=== PATIENT | male | born 1965 | race Caucasian/White ===

== ENCOUNTER 2018-07-16 21:43 | Observation (INO) | payer OTHER ==
--- NOTE | 2018-07-16 22:07 | ED ---
HPI Chest Pain - HPI Summary HPI Summary: This patient is a 52 year old M presenting to [facility] with a chief complaint of left sided chest pain for the last 90 minutes. He states he felt nauseous but has resolved post arrival. He denies diaphoresis and SOB. Patient also has a secondary complaint of increased depression and is seeking a voluntary MHE, he denies SI. He had stents placed in 2014. The patient rates his chest pain 7/10 in severity. The patient takes Plavix and aspirin. He had his last stress test less than year ago. He has had one other episode of chest pain 8 months ago since he had his stent placed. The patient has not been taking his depression medication which is why he is seeking help for his depression. - History of Current Complaint Chief Complaint: EDChestPainROMI Time Seen by Provider: 07/16/18 21:59 Hx Obtained From: Patient Onset/Duration: Started Hours Ago Timing: Constant Current Severity: Moderate Pain Intensity: 7 Pain Scale Used: 0-10 Numeric Chest Pain Radiates: No Character: Heaviness Associated Signs and Symptoms: Positive: Nausea - Allergy/Home Medications Allergies/Adverse Reactions: Allergies Allergy/AdvReac Type Severity Reaction Status Date / Time clonidine Allergy Rash Verified 07/16/18 22:27 haloperidol [From Haldol] Allergy Hives Verified 07/16/18 22:27 nitroglycerin Allergy Hives Verified 07/16/18 22:27 Penicillins Allergy GI Upset Verified 07/16/18 22:27 Home Medications: Home Medications Atenolol 50 mg PO BID 07/16/18 [History Confirmed 07/16/18] Clopidogrel Bisulfate [Plavix] 75 mg PO DAILY 07/16/18 [History Confirmed ] Hydrocodone/Acetaminophen [Hydrocodone/Acetaminophen 5-325 mg] 1 tab PO Q6HR PRN 07/16/18 [History Confirmed 07/16/18] Atorvastatin* [Lipitor*] 20 mg PO DAILY 07/17/18 [History Confirmed 07/17/18] PMH/Surg Hx/FS Hx/Imm Hx Endocrine/Hematology History: Denies: Hx Anemia, Hx Unexplained Bleeding Cardiovascular History: Reports: Hx Coronary Artery Disease, Hx Hypercholesterolemia, Hx Hypertension Denies: Hx Aneurysm, Hx Angina, Hx Angioplasty, Hx Auto Implanted Cardiovert Defib, Hx Cardiac Arrest, Hx Cardiomegaly, Hx Congenital Heart Disease, Hx Congestive Heart Failure, Hx Deep Vein Thrombosis, Hx Embolism, Hx Hypotension, Hx Pacemaker/ICD, Hx Peripheral Vascular Disease, Hx Rheumatic Fever, Hx Syncope , Hx Valvular Heart Disease, Other Cardiovascular Problems/Disorders GI History: Reports: Hx Gastroesophageal Reflux Disease Denies: Hx Cirrhosis, Hx Crohn's Disease, Hx Diverticulosis, Hx Gall Bladder Disease, Hx Gastrointestinal Bleed, Hx Hiatal Hernia, Hx Irritable Bowel, Hx Jaundice, Hx Obstructive Bowel, Hx Ileostomy, Hx Pyloric Stenosis, Hx Ulcer, Other GI Disorders Sensory History: Reports: Hx Contacts or Glasses Denies: Hx Cataracts, Hx Eye Injury, Hx Eye Prosthesis, Hx Glaucoma, Hx Legally Blind, Hx Macular Degeneration, Hx Vision Problem, Hx Deafness, Hx Hearing Aid, Hx Hearing Problem, Other Sensory Impairments Opthamlomology History: Reports: Hx Contacts or Glasses Denies: Hx Cataracts, Hx Eye Injury, Hx Eye Prosthesis, Hx Glaucoma, Hx Legally Blind, Hx Macular Degeneration, Hx Vision Problem, Other Sensory Impairments Psychiatric History: Reports: Hx Anxiety, Hx Depression, Hx Inpatient Treatment , Hx Community Mental Health Tx, Hx Bipolar Disorder, Hx Suicide Attempt Denies: Hx Attention Deficit Hyperactivity Disorder, Hx Eating Disorder, Hx Panic Disorder, Hx Post Traumatic Stress Disorder, Hx Schizophrenia, Hx of Violent Episodes Against Others, Hx Substance Abuse, Other Psychiatric Issues/ Disorders - Surgical History Surgery Procedure, Year, and Place: 1999 appendix. 1999 Left cataract. 2013 2 stents Hx Anesthesia Reactions: No Infectious Disease History: No Infectious Disease History: Denies: Hx Hepatitis, Traveled Outside the [place] in Last 30 Days - Family History Known Family History: Positive: Cardiac Disease - Father - Social History Alcohol Use: None Substance Use Type: Reports: None Substance Use Comment - Amount & Last Used: Fentanyl patch and hydrocodone Smoking Status (MU): Heavy Every Day Tobacco Smoker Type: Cigarettes Have You Smoked in the Last Year: Yes Review of Systems Negative: Skin Diaphoresis Positive: Chest Pain Negative: Shortness Of Breath Positive: Nausea Positive: Other - Neg: SI All Other Systems Reviewed And Are Negative: Yes Physical Exam - Summary Physical Exam Summary: VITAL SIGNS: Reviewed. GENERAL: Patient is a well-developed and nourished MALE who is lying comfortable in the stretcher. Patient is not in any acute respiratory distress. HEAD AND FACE: No signs of trauma. No ecchymosis, hematomas or skull depressions. No sinus tenderness. EYES: PERRLA, EOMI x 2, No injected conjunctiva, no nystagmus. EARS: Hearing grossly intact. Ear canals and tympanic membranes are within normal limits. MOUTH: Oropharynx within normal limits. NECK: Supple, trachea is midline, no adenopathy, no JVD, no carotid bruit, no c- spine tenderness, neck with full ROM. CHEST: Symmetric, no tenderness at palpation LUNGS: Clear to auscultation bilaterally. No wheezing or crackles. CVS: Regular rate and rhythm, S1 and S2 present, no murmurs or gallops appreciated. ABDOMEN: Soft, non-tender. No signs of distention. No rebound no guarding, and no masses palpated. Bowel sounds are normal. EXTREMITIES: FROM in all major joints, no edema, no cyanosis or clubbing. NEURO: Alert and oriented x 3. No acute neurological deficits. Speech is normal and follows commands. SKIN: Dry and warm Triage Information Reviewed: Yes Vital Signs On Initial Exam: Initial Vitals Temp Pulse Resp BP Pulse Ox 98.0 F 110 16 151/117 96 07/16/18 21:48 07/16/18 21:48 07/16/18 21:48 07/16/18 21:48 07/16/18 21:48 Vital Signs Reviewed: Yes Diagnostics - Vital Signs Vital Signs Temp Pulse Resp BP Pulse Ox 07/16/18 21:48 98.0 F 110 16 151/117 96 - Laboratory Result Diagrams: 07/16/18 22:39 07/16/18 22:39 Lab Statement: Any lab studies that have been ordered have been reviewed, and results considered in the medical decision making process. - Radiology CXR Radiology Interpretation Completed By: ED Physician Summary of Radiographic Findings: No acute process. Pending official radiologist report. - EKG 2087 Cardiac Rate: NL EKG Rhythm: Sinus Rhythm - 100 BPM Summary of EKG Findings: 1st degree AV block no ischemic changes. Chest Pain Course/Dx - Course Assessment/Plan: This patient is a 52 year old M presenting to [facility] with a chief complaint of left sided chest pain for the last 90 minutes. CXR was unremarkable for acute cardiopulmonary disease. D-Dimer was negative. The patient will be admitted for chest pain. This plan was discussed with the patient and he was agreeable with this plan. [place] hospitalist [id number]. Irene Shin, Hospitalist, accepted the patient for admission at 2342. - Diagnoses Provider Diagnoses: Chest pain - Provider Notifications Discussed Care Of Patient With: Irene Shin - Hospitalist Time Discussed With Above Provider: 23:42 Instructed by Provider To: Admit As Inpatient Discharge - Sign-Out/Discharge Documenting (check all that apply): Patient Departure - Admission - Discharge Plan Condition: Stable Disposition: ADMITTED TO [facility] - Billing Disposition and Condition Condition: STABLE Disposition: Admitted to [facility] - Attestation Statements Document Initiated by Nichole: Yes Documenting Scribe: Med Wilson Provider For Whom Nichole is Documenting (Include Credential): Jose Colon MD Scribe Attestation: Med Arroyo scribed for Jose Colon MD on 07/17/18 at 0626. Scribe Documentation Reviewed: Yes Provider Attestation: The documentation as recorded by the Med islas accurately reflects the service I personally performed and the decisions made by me, Jose Colon MD Status of Scribe Document: Viewed
[2018-07-16] MEDS ORDERED: Morphine VIAL* 4 MG/ML VIAL (1 ml vial) IV ONE (22:27)
[2018-07-16] MEDS ORDERED: Ondansetron INJ* 2 MG/ML VIAL IV ONE (22:27)
[2018-07-16] MEDS ORDERED: Aspirin 81 mg CHEW TAB* 81 MG TAB.CHEW PO ONE (22:28)
[2018-07-16 22:50] LABS: ABS Basophils 0 10^3/ul (0-0.2); ABS Eosinophils 0.1 10^3/ul (0-0.6); ABS Lymphocytes 1.9 10^3/ul (1.0-4.8); ABS Monocytes 0.5 10^3/ul (0-0.8); ABS Nucleated RBC 0 10^3/ul; Eosinophil % 1.1 %; Hematocrit 45 % (42-52); Hemoglobin 15.1 g/dl (14.0-18.0); Lymphocyte % 22.5 %; Mean Corpuscular HGB Conc 34 g/dl (31-36); Mean Corpuscular Hemoglobin 31 pg (27-31); Mean Corpuscular Volume 93 fL (80-94); Mean Platelet Volume 8.6 fL (7.4-10.4); Nucleated Red Blood Cells % 0.1; Platelet Count 199 10^3/ul (150-450); Red Blood Count 4.83 10^6/ul (4.00-5.40); Red Cell Distribution Width 13 % (10.5-15); White Blood Count 8.6 10^3/ul (3.5-10.8)
[2018-07-16 22:56] LABS: Urine Appearance Clear; Urine Bilirubin Negative (Negative); Urine Blood Negative (Negative); Urine Color Straw; Urine Glucose Negative (Negative); Urine Ketones Negative (Negative); Urine Nitrite Negative (Negative); Urine Protein Negative (Negative); Urine Specific Gravity 1.005 (1.010-1.030); Urine Urobilinogen Negative (Negative)
[2018-07-16 23:03] LABS: INR 0.95 (0.77-1.02)
[2018-07-16 23:05] LABS: ALT 28 U/L (7-52); AST 23 U/L (13-39); Albumin 4.1 g/dL (3.2-5.2); Albumin/Globulin Ratio 1.8 (1-3); Alkaline Phosphatase 84 U/L (34-104); Anion Gap 7 mmol/L (2-11); BUN/Creatinine Ratio 17.9 (8-20); Blood Urea Nitrogen 15 mg/dL (6-24); CO2 Carbon Dioxide 28 mmol/L (22-32); Calcium 9.5 mg/dL (8.6-10.3); Chloride 102 mmol/L (101-111); EGFR Non-African American 95.6 (>60); Globulin 2.3 g/dL (2-4); Glucose 164 mg/dL (70-100); Magnesium 1.8 mg/dL (1.9-2.7); Potassium 4.1 mmol/L (3.5-5.0); Sodium 137 mmol/L (135-145); Total Protein 6.4 g/dL (6.4-8.9)
[2018-07-16 23:18] LABS: Barbiturates Urine Screen None Detected (None Detect); Benzodiazepine Urine Screen Presumptive Positive (None Detect); Urine Cannabinoids Screen None Detected (None Detect)
[2018-07-17] MEDS ORDERED: Nicotine GUM* 2 MG PO PRN (00:20)
[2018-07-17 00:23] LABS: Acetaminophen < 15 mcg/mL; Alcohol < 10 mg/dL (<10); Salicylate < 2.50 mg/dL (<30)
[2018-07-17 00:38] LABS: TSH (Thyroid Stimulating Horm) 1.27 mcIU/mL (0.34-5.60)
[2018-07-17] MEDS ORDERED: fentaNYL PATCH 50 MCG/HR TRANSDERM SCH ×2 (01:00→02:30)
[2018-07-17] MEDS ORDERED: Mouth Piece, Nicotine* 1 EACH CARTRIDGE INH ONE (01:00)
[2018-07-17] MEDS ORDERED: fentaNYL PATCH 75 MCG/HR* 75 MCG TRANSDERM SCH (02:30)
[2018-07-17] MEDS: Nicotine Inhaler* 10 MG AMP INH PRN ×2 (02:32→09:08)
[2018-07-17] MEDS: HYDROcodone/ACETAMIN 5-325 MG* 1 TAB PO PRN ×3 (02:33→14:57)
--- NOTE | 2018-07-17 03:07 | HP ---
HOSPITAL MEDICINE HISTORY AND PHYSICAL: DATE OF ADMISSION: 07/17/18 PRIMARY CARE PHYSICIAN: None. ATTENDING PHYSICIAN: Dr. Shin* (dictation provided by Claudia Ren NP) CHIEF COMPLAINT: Chest pain and depression. HISTORY OF PRESENT ILLNESS: Mr. Bell is a 52-year-old male who presents today to the hospital with concern for depression initially. The patient states that he recently did not have access to his Celexa due to an issue with getting a refill processed; however, he was able to straighten that out and had resumed his Celexa approximately 2 days ago. The patient states that he was talking with a friend today and based on the way he was speaking to him and the depression he was evidencing, the friend recommended that he come to the emergency room to "talk to someone." This friend drove the patient to the hospital. On the way here, the patient became nauseous. They stopped at a gas station where he had dry heaves, but did not vomit. With this, he developed chest pain on the left side of his chest and now in the emergency room, he is continuing to complain of discomfort and states he feels like he has a load of bricks sitting on his chest. He denies shortness of breath. He has had no diaphoresis. He denies radiation of the pain. He states that prior to this happening, he has not had any pain like this since the time that he had his cardiac cath with stent placed in [facility] in 2013 or 2014. In the emergency room, the patient had a troponin, which was negative. He had an EKG, which showed no evidence of ischemia. His labs were unremarkable. His chest x-ray appears to show no acute cardiothoracic process. In terms of his depression, the patient is unable to clearly characterize for me how he has been feeling, but he clearly denies any suicidal ideation. Mental health evaluation was ordered in the emergency department and I do not believe that has been accomplished yet. PAST MEDICAL HISTORY: 1. Depression. 2. Coronary artery disease with stent placement x2 in [address] [facility]. 3. Cardiomyopathy. 4. Anxiety. 5. History of appendectomy. 6. Hypertension. 7. History of tobacco abuse. MEDICATIONS: 1. Clopidogrel 75 mg p.o. daily. 2. Fentanyl patch 75 mcg topically q.72 hours. 3. Pantoprazole 40 mg p.o. daily. 4. Hydrocodone/acetaminophen 1 tab p.o. q.6 hours p.r.n. 5. Citalopram 20 mg p.o. daily. 6. Atenolol 50 mg p.o. b.i.d. 7. Alprazolam 2 mg p.o. t.i.d. ALLERGIES: CLONIDINE, HALOPERIDOL, NITROGLYCERIN, and PENICILLINS. FAMILY HISTORY: The patient's mother at 57 of lupus, father at 78 and had a coronary artery disease with 3-vessel CABG. SOCIAL HISTORY: The patient is a half a pack a day smoker. Denies alcohol or drug use. He is unable to offer healthcare proxy. REVIEW OF SYSTEMS: A 14-point review of systems was completed with Mr. Bell and all those not mentioned above were negative. PHYSICAL EXAMINATION GENERAL: Mr. Bell is lying in bed, in no acute distress. VITAL SIGNS: Temperature 98.0, pulse rate 91, respiratory rate 14, O2 saturation 98% on room air, blood pressure 170/94. LUNGS: Clear to auscultation bilaterally with no accessory muscle use and good aeration. HEART: S1, S2. No murmur, rub, or gallop and regular. ABDOMEN: Soft, nontender with bowel sounds positive x4. EXTREMITIES: No cyanosis. No edema. NEUROLOGIC: He is alert and oriented x3. He moves all extremities equally. No facial asymmetry or focal weakness. Extraocular movements are intact. SKIN: Intact. LABORATORY DATA/DIAGNOSTIC STUDIES: Sodium 137, potassium 4.1, chloride 102, serum bicarbonate 28, BUN 15, creatinine 0.84, glucose 164, magnesium 1.8. Troponin 0.01. WBC 8.6, hemoglobin 15.1, hematocrit 45, platelet count 199. Urine shows no evidence of infection. Toxicology screen is positive for opiates and benzodiazepines. The chest x-ray appears to show no acute cardiothoracic process, but radiology report is pending. ASSESSMENT: Mr. Bell is a 52-year-old male with past medical history of coronary artery disease with stents, who presents to the hospital today with a concern for chest pain in the setting of presenting to the hospital for depression. Our plans are for observation in the hospital for the followin. Chest pain: The patient's primary complaint arriving here today was depression, but on the way here, he did develop chest pain. He continues to have a sensation of the "ton of bricks sitting on his chest." The patient does have a history of coronary artery disease and does deserve workup on a more urgent basis. First troponin was negative. He will have 2 repeat troponins and then go on for a stress test in the morning. He will have EKGs with each troponin. 2. Depression. The patient actively denies any suicidal ideation today. Mental health evaluators have been requested to see him in the emergency room and it is my hope that they will come to see him upstairs. At this time, the patient is unsure whether or not staying in the behavioral health unit would have any benefit for him. He has received treatment there before. I think the patient at least desires a mental health solo truck driver evaluation before he leaves, if not a full consultation with psychiatry. 3. Nicotine use. The patient will have nicotine inhaler and patch available p.r.n. 4. History of coronary artery disease, continue his Plavix. Aspirin has been added for acute chest pain. 5. Depression. Continue his home medications. 6. Chronic pain. Continue home medications. 7. Anxiety. Continue home medications. 8. Code status is full code. 9. Disposition: To telemetry floor. TIME SPENT: Approximately 60 minutes were spent on the admission of this patient, more than half of the time was spent with the patient at the bedside reviewing the events leading up to this hospitalization, performing the physical examination, and reviewing my plan of care. CLAUDIA REN NP [id number]/CPS #: [id number]
[2018-07-17] MEDS: Heparin VIAL(*) 5000 UNITS/ML VIAL (FIVE THOUSAND) SUBCUT SCH ×2 (05:02→13:52)
[2018-07-17 05:58] LABS: HDL Cholesterol 30.8 mg/dL
[2018-07-17] MEDS ORDERED: fentaNYL Patch Check Q Shift 1 NOTE FOLLOW UP SCH (07:00)
[2018-07-17] MEDS: ALPRAZolam TAB* 0.5 MG PO SCH ×2 (08:49→13:52)
[2018-07-17] MEDS ORDERED: Atenolol TAB* 50 MG PO SCH (09:00)
[2018-07-17] MEDS ORDERED: Clopidogrel TAB* 75 MG PO SCH (09:00)
[2018-07-17] MEDS ORDERED: CMCS: Pantoprazole TAB (NF) 40 MG TAB PO SCH (09:00)
[2018-07-17] MEDS ORDERED: Citalopram TAB* 20 MG PO SCH (09:00)
[2018-07-17] MEDS ORDERED: Aspirin 81 mg CHEW TAB* 81 MG TAB.CHEW PO SCH (09:00)
[2018-07-17] MEDS ORDERED: Nicotine PATCH 14 MG/24 HR* PATCH TRANSDERM SCH (09:00)
--- NOTE | 2018-07-17 10:48 | ECHO ---
Patient: DARIEL SINGH Rec#: [id number] : 1965 Date: 07/17/2018 Age: 52y Height: 183 cm / 72.0 in Weight: 109 kg / 240.2 lbs Sex: M BSA: 2.3 Room#: [facility] Admit Date#: 07/17/2018 Type: Inpatient Referring: Trav Macias Reading: Aron Pena MD Executive Manager: Sommer Caro [facility] Transthoracic Echocardiogram Indication: CP BP: 134/79 HR: 57 Rhythm: Bradycardia Findings History: Depression,anxiety,CAD with prior PCI,HTN,smoker. Technical Comments: The study is technically limited due to the patient's smoking history. Completed at 1031. Left Ventricle: The left ventricular chamber size is normal. Mild concentric left ventricular hypertrophy is observed. Global left ventricular wall motion and contractility are within normal limits. There is normal left ventricular systolic function. The estimated ejection fraction is 55-60%. Abnormal left ventricular diastolic function is observed. Left Atrium: The left atrium is moderate to severely dilated. Right Ventricle: The right ventricular cavity size is normal. The right ventricular global systolic function is normal. Right Atrium: The right atrium is moderate to severely dilated. Aortic Valve: The aortic valve is trileaflet. There is no evidence of aortic valve thickening. There is no evidence of aortic regurgitation. There is no evidence of aortic stenosis. Mitral Valve: The mitral valve leaflets are mildly thickened. There is no evidence of mitral regurgitation. Tricuspid Valve: The tricuspid valve leaflets are normal. There is no evidence of tricuspid valve regurgitation. Unable to estimate the right ventricular systolic pressure. Pulmonic Valve: The pulmonic valve appears normal. There is no evidence of pulmonic regurgitation. There is no pulmonic stenosis. Pericardium: There is no significant pericardial effusion. A pericardial fat pad is visualized. Aorta: There is no dilatation of the ascending aorta. There is no dilatation of the aortic arch. There is mild dilatation of the aortic root. Pulmonary Artery: The main pulmonary artery is not well visualized. Venous: The venous system is not well visualized. Conclusions There is normal left ventricular systolic function. The estimated ejection fraction is 55-60%. Global left ventricular wall motion and contractility are within normal limits. The left ventricular chamber size is normal. Mild concentric left ventricular hypertrophy is observed. Abnormal left ventricular diastolic function is observed. The left atrium is moderate to severely dilated. The right atrium is moderate to severely dilated. Functionally benign heart valves. Since the prior echocardiogram completed 04/01/15, there is no significant change. Measurements Name Value Normal Range RVIDd (AP) 2D 3.2 cm (0.9 - 2.6) RVDdMajor (2D) 3.1 cm (2.2 - 4.4) RAd ISD 4CH 6.4 cm (3.4 - 4.9) RA (A4C)W 4.1 cm (2.9 - 4.6) IVSd (2D) 1.2 cm (0.6 - 1) LVPWd (2D) 1.3 cm (0.6 - 1) LVIDd (2D) 4.8 cm (3.6 - 5.4) LVIDs (2D) 3.1 cm - LV FS (2D) 35 % (25 - 45) Aortic Annulus 2.1 cm (1.4 - 2.6) Ao root diameter (2D) 3.6 cm (2.1 - 3.5) Ascending Ao 2.8 cm (2.1 - 3.4) Aortic arch 2.1 cm (1.8 - 3.4) Descending Ao 0.7 cm - LA dimension (AP) 2D 4.8 cm (2.3 - 3.8) LAd ISD 4CH 6.1 cm (2.9 - 5.3) LA ISD 4CH W 5.6 cm (2.5 - 4.5) Name Value Normal Range LA ESV SP 4CH (A/L) 43 ml - LA ESV SP 2CH (A/L) 16 ml - LA ESV BP (A/L) index 27 ml/m2 - Name Value Normal Range MV E-wave Vmax 0.7 m/sec - MV deceleration time 250 msec - MV A-wave Vmax 0.4 m/sec - MV E:A ratio 1.8 ratio - LV septal e' Vmax 0.08 m/sec - LV lateral e' Vmax 0.11 m/sec - LV E:e' septal ratio 8.75 ratio - LV E:e' lateral ratio 6.36 ratio - Name Value Normal Range AV Vmax 0.9 m/sec - AV VTI 20.9 cm - AV peak gradient 3 mmHg - AV mean gradient 2 mmHg - LVOT Vmax 0.8 m/sec - LVOT VTI 17.2 cm - LVOT peak gradient 2 mmHg - LVOT mean gradient 1 mmHg - Name Value Normal Range PV Vmax 0.5 m/sec - PV peak gradient 1 mmHg -
[2018-07-17 12:35] VITALS: BP 117/76
[2018-07-17] MEDS ORDERED: Nicotine Patch Removal NOTE PATCH OFF SCH (21:00)
--- NOTE | 2018-07-17 23:32 | DS ---
CC: Dr. Edmundo Art; Dr. Doug Booth* DISCHARGE SUMMARY: DATE OF ADMISSION: 07/16/18 DATE OF DISCHARGE: 07/17/18 PRIMARY CARE PROVIDER: Dr. Edmundo Art. MY ATTENDING WHILE IN THE HOSPITAL: Dr. Doug Booth* (dictated by LAURY Mario). PRIMARY DISCHARGE DIAGNOSIS: Chest pain. SECONDARY DISCHARGE DIAGNOSES: 1. History of alcohol-related cardiomyopathy. 2. History of bare-metal stenting for chronic stable angina. 3. History of coronary artery dissection, status post treatment with bare- metal stenting. 4. Chronic pain. 5. Anxiety. 6. Depression. STUDIES DONE WHILE IN THE HOSPITAL: Electrocardiogram from 07/16/18 shows sinus tachycardia, QTc 453, rate of 100, no ST-segment elevation or depression, no T-wave inversions, no hypertrophy or enlargement, normal R-wave progression across the precordium, normal axis, borderline right bundle-branch block. Repeat EKGs show no significant changes. Chest x-ray read as no evidence of acute disease. Transthoracic echocardiogram from 07/17/18 read as normal left ventricular systolic function, estimated ejection fraction at 55% to 60%, global left ventricular wall motion within normal limits, left ventricular chamber size is normal, mild left ventricular hypertrophy is observed, and normal left ventricular diastolic function is observed. Left atrium is moderately to severely dilated, right atrium is moderately to severely dilated, functionally benign heart valves. Since prior echocardiogram from 04/01/15, there were no significant changes. MEDICATIONS AT DISCHARGE: 1. Pantoprazole 40 mg p.o. daily. 2. Citalopram 20 mg p.o. daily. 3. Fentanyl 75 mcg topical q.72 hours. 4. Alprazolam 2 mg p.o. t.i.d. 5. Atenolol 50 mg p.o. b.i.d. 6. Hydrocodone/acetaminophen 1 tab p.o. q.6 hours as needed. 7. Clopidogrel 75 mg p.o. daily. 8. Atorvastatin 20 mg p.o. daily. 9. Aspirin 81 mg p.o. daily. HOSPITAL COURSE: This is a brief summary of the patient's presentation. For more details, please see history and physical from Claudia Ren NP, on 07/17/18. In brief, the patient is a 52-year-old male with past medical history significant for above, who presented to the emergency department for depression , but was found at that time to have chest pain which started on the way to the emergency room. This was associated with nausea and a feeling of being hot, but no diaphoresis. The patient initially denied having pain like this since he had a stent placed at [facility]; however, records from [facility] from 2014 reveal that the patient has been seen numerous times at that institution for similar pain and he was believed at that time to be attempting to elicit extra narcotic prescriptions. The patient denied suicidal or homicidal ideation. The patient was depressed and his friend told him to come in, however, it was unclear why this was. The patient had somewhat of a flat affect, but was generally euthymic while he was in the hospital. The patient had previously had a poor reaction to the nuclear medicine dye and refused his stress test on the morning of 07/17/18. The patient also refused a stress echocardiogram due to feeling pressured into doing these tests. The patient wants to do stress test outpatient if he was going to have one. The patient had a transthoracic echocardiogram, it was normal. The patient had 3 troponins which were negative. The patient had 3 EKGs read as above, with no ischemic changes. The patient had LDL cholesterol of 71. The patient had a toxicology screen positive only for his prescribed medications. The patient continued to have chest pain throughout the night. The patient's chest pain did not respond to his home medications. The patient was not given nitroglycerin while in the hospital. The patient's vital signs were within normal limits. The patient was stable and amenable for discharge on 07/17/18. PHYSICAL EXAM ON DAY OF DISCHARGE: General: The patient is a 52-year-old male who appears stated age and sitting comfortably in bed, in no acute distress. Vital Signs: At the time of discharge, temperature 97.9, pulse rate of 56, respiratory rate 20, oxygen saturation 100% on room air, blood pressure 117/76. HEENT: Head normocephalic, atraumatic. Sclerae anicteric. No conjunctival injection. Nasal mucosa moist. Oral mucosa moist. No pharyngeal erythema, discharge, or exudate. Neck: Supple, nontender. No lymphadenopathy. No carotid bruits auscultated. No JVD. Cardiac: Regular rate and rhythm. No clicks, murmurs, gallops, or rubs. Pulses are 2+ in the bilateral dorsalis pedis , posterior tibialis, and radial areas. Respiratory: Clear to auscultation bilaterally. No wheezes, rales, or rhonchi. Good air exchange bilaterally. Abdomen: Soft, nontender, nondistended. Bowel sounds present. Normoactive in all 4 quadrants. No hepatosplenomegaly. No abdominal bruits auscultated. No hepatojugular reflux. Genitourinary: No suprapubic or CVA tenderness. Skin: Clean, dry, intact. No rash. Neurologic: Cranial nerves II through XII are intact. No focal deficits. Alert and oriented x3. Psychiatric: Pleasant and cooperative. Flat affect, generally euthymic as above. DISCHARGE PLAN: The patient will be discharged to home on his home medications. The patient was not given any additional narcotic medications. The patient will have an outpatient stress test. Given that the patient has had 13 hours of continuous of chest pain and no troponin elevation, it is very unlikely that this represents acute coronary syndrome; however, given the patient's history, this needs to be ruled out. The patient's echocardiogram has no significant changes from his previous exam. The patient should follow up as an outpatient with primary care provider within 1 week for general medical management and possible evaluation of other causes of his chest pain including gastrointestinal and musculoskeletal causes. The patient should return to the hospital if significant worsening in his chest pain, severe shortness of breath, or other alarming symptoms. The patient should follow up with Cardiology as indicated outpatient pending the results of his outpatient stress test on 07/21/18. TIME SPENT: Approximately 60 minutes was spent on the discharge of this patient , 40 of which was spent [id number] with the patient obtaining history and physical and discussing treatment plan. LAURY MARIO [id number] #: [id number] MTDD
== END 2018-07-17 15:59 | disposition home or self-care (01) ==
LOC: ED 21:43 → MEDTELE 07-17 00:10
PROVIDERS: ADMIT Internal Medicine; ATTEND Internal Medicine
DX: R07.9 Chest pain, unspecified (principal); I42.6 Alcoholic cardiomyopathy; I25.10 Atherosclerotic heart disease of native coronary artery without angina pectoris; G89.29 Other chronic pain; F41.9 Anxiety disorder, unspecified; F32.9 Major depressive disorder, single episode, unspecified; Z79.82 Long term (current) use of aspirin; Z95.5 Presence of coronary angioplasty implant and graft; I10 Essential (primary) hypertension; Z88.0 Allergy status to penicillin
CPT/HCPCS: 36415; 71045; 80053; 80061; 80307; 80320; 80329; 81003; 83735; 83880; 84443; 84484; 85025; 85379; 85610; 93005; 93306; 96372; 96374; 96375; 99285; A9270-GY; G0378; G0480; J1644; J2270; J2405

== ENCOUNTER 2019-04-01 19:46 | Inpatient (IN) | payer OTHER ==
[2019-04-01 20:21] LABS: ABS Basophils 0.1 10^3/ul (0-0.2); ABS Eosinophils 0.2 10^3/ul (0-0.6); ABS Lymphocytes 2.2 10^3/ul (1.0-4.8); ABS Monocytes 0.6 10^3/ul (0-0.8); ABS Neutrophils 4.6 10^3/ul (1.5-7.7); Eosinophil % 2.3 %; Hematocrit 42 % (42-52); Hemoglobin 14.6 g/dL (14.0-18.0); Lymphocyte % 29.4 %; Mean Corpuscular HGB Conc 35 g/dL (31-36); Mean Corpuscular Hemoglobin 32 pg (27-31); Mean Corpuscular Volume 93 fL (80-94); Mean Platelet Volume 7.7 fL (7.4-10.4); Nucleated Red Blood Cells % 0.1; Platelet Count 234 10^3/uL (150-450); Red Blood Count 4.49 10^6 /uL (4.18-5.48); Red Cell Distribution Width 13 % (10-15); White Blood Count 7.6 10^3/uL (3.5-10.8)
[2019-04-01 20:39] LABS: Albumin/Globulin Ratio 1.8 (1-3); BUN/Creatinine Ratio 21.4 (8-20); Calcium 9.4 mg/dL (8.6-10.3); EGFR African American 115.2 (>60); EGFR Non-African American 95.2 (>60); Globulin 2.2 g/dL (2-4); Total Bilirubin 0.4 mg/dL (0.2-1.0); Total Protein 6.2 g/dL (6.4-8.9)
[2019-04-01 21:10] LABS: Potassium 4.3 mmol/L (3.5-5.0)
--- NOTE | 2019-04-01 22:33 | ED ---
HPI Chest Pain - HPI Summary HPI Summary: This patient is a 53 year old M w hx CAD, OK s/p 2 stents in 2014, presenting to [facility] with a chief complaint of CP since 1930 on 04/01/19. Patient was last seen in the ED for similar symptoms on 07/17/18. Patient states that he received 2 cardiac stents in 2014 as a result of OK. The patient rates the pain 8/10 in severity per health assessment and treatment teacher. Pain is characterized as pressure and is described to be constant. States it feels similar to his prior pain when he had his OK. Patient reports diaphoresis which has since resolved and denies SOB overall. Patient states that he has PMHx of HTN. He endorses tobacco use but denies EtOH use. Patient states that he takes ASA, Plavix and is allergic to nitroglycerin. Of note had admission in Jun 2018 for CP but did not get his outpatient stress test afterwards and has not followed up with cardiology. - History of Current Complaint Chief Complaint: EDChestPainROMI Time Seen by Provider: 04/01/19 20:06 Hx Obtained From: Patient Onset/Duration: Started Hours Ago Timing: Constant Initial Severity: Severe Pain Intensity: 8 Pain Scale Used: 0-10 Numeric Chest Pain Location: Discrete at: - left sided chest Chest Pain Radiates: No Character: Pressure/Squeezing Aggravating Factor(s): Nothing Alleviating Factor(s): Nothing Associated Signs and Symptoms: Positive: Chest Pain, Diaphoresis - since resolved. Negative: Shortness of Breath Related History: Similar Episode/Dx as: - Chest Pain 07/17/18 - Allergy/Home Medications Allergies/Adverse Reactions: Allergies Allergy/AdvReac Type Severity Reaction Status Date / Time clonidine Allergy Rash Verified 07/16/18 22:27 haloperidol [From Haldol] Allergy Hives Verified 07/16/18 22:27 lisinopril Allergy Coughing Verified 04/01/19 19:55 nitroglycerin Allergy Hives Verified 07/16/18 22:27 Penicillins Allergy GI Upset Verified 07/16/18 22:27 PMH/Surg Hx/FS Hx/Imm Hx Endocrine/Hematology History: Denies: Hx Anemia, Hx Unexplained Bleeding Cardiovascular History: Reports: Hx Coronary Artery Disease, Hx Hypercholesterolemia, Hx Hypertension Denies: Hx Aneurysm, Hx Angina, Hx Angioplasty, Hx Auto Implanted Cardiovert Defib, Hx Cardiac Arrest, Hx Cardiomegaly, Hx Congenital Heart Disease, Hx Congestive Heart Failure, Hx Deep Vein Thrombosis, Hx Embolism, Hx Hypotension, Hx Pacemaker/ICD, Hx Peripheral Vascular Disease, Hx Rheumatic Fever, Hx Syncope , Hx Valvular Heart Disease, Other Cardiovascular Problems/Disorders GI History: Reports: Hx Gastroesophageal Reflux Disease Denies: Hx Cirrhosis, Hx Crohn's Disease, Hx Diverticulosis, Hx Gall Bladder Disease, Hx Gastrointestinal Bleed, Hx Hiatal Hernia, Hx Irritable Bowel, Hx Jaundice, Hx Obstructive Bowel, Hx Ileostomy, Hx Pyloric Stenosis, Hx Ulcer, Other GI Disorders Sensory History: Reports: Hx Contacts or Glasses Denies: Hx Cataracts, Hx Eye Injury, Hx Eye Prosthesis, Hx Glaucoma, Hx Legally Blind, Hx Macular Degeneration, Hx Vision Problem, Hx Deafness, Hx Hearing Aid, Hx Hearing Problem, Other Sensory Impairments Opthamlomology History: Reports: Hx Contacts or Glasses Denies: Hx Cataracts, Hx Eye Injury, Hx Eye Prosthesis, Hx Glaucoma, Hx Legally Blind, Hx Macular Degeneration, Hx Vision Problem, Other Sensory Impairments Psychiatric History: Reports: Hx Anxiety, Hx Depression, Hx Inpatient Treatment , Hx Community Mental Health Tx, Hx Bipolar Disorder, Hx Suicide Attempt Denies: Hx Attention Deficit Hyperactivity Disorder, Hx Eating Disorder, Hx Panic Disorder, Hx Post Traumatic Stress Disorder, Hx Schizophrenia, Hx of Violent Episodes Against Others, Hx Substance Abuse, Other Psychiatric Issues/ Disorders - Surgical History Surgery Procedure, Year, and Place: 2000 appendix. 1999 Left cataract. 2013 2 stents Hx Anesthesia Reactions: No Infectious Disease History: No Infectious Disease History: Denies: Hx Hepatitis, Hx of Known/Suspected MRSA, Hx Shingles, Hx Tuberculosis, History Other Infectious Disease, Traveled Outside the [place] in Last 30 Days - Family History Known Family History: Positive: Cardiac Disease - Father - Social History Alcohol Use: None Substance Use Type: Reports: None Substance Use Comment - Amount & Last Used: Fentanyl patch and hydrocodone Hx Tobacco Use: Yes Smoking Status (MU): Heavy Every Day Tobacco Smoker Type: Cigarettes Have You Smoked in the Last Year: Yes Review of Systems Positive: Skin Diaphoresis - since resolved Positive: Chest Pain Negative: Shortness Of Breath All Other Systems Reviewed And Are Negative: Yes Physical Exam - Summary Physical Exam Summary: Constitutional: Well-developed, Well-nourished, Alert. (-) Distressed Skin: Warm, Dry HENT: Normocephalic; Atraumatic Eyes: Conjunctiva normal Neck: Musculoskeletal ROM normal neck. (-) JVD, (-) Stridor, (-) Nuchal rigidity Cardio: Tachycardic, Heart sounds normal; Intact distal pulses; Radial pulses are 2+ and symmetric. (-) Murmur Pulmonary/Chest wall: Effort normal. (-) Respiratory distress, (-) Wheezes, (-) Rales Abd: Soft, (-) tenderness, (-) Distension, (-) Guarding, (-) Rebound Musculoskeletal: (-) Edema Lymph: (-) Cervical adenopathy Neuro: Alert, Oriented x3 Psych: Mood and affect Normal Triage Information Reviewed: Yes Vital Signs On Initial Exam: Initial Vitals Temp Pulse Resp BP Pulse Ox 97.3 F 98 18 164/90 99 04/01/19 19:49 04/01/19 19:49 04/01/19 19:49 04/01/19 19:49 04/01/19 19:49 Vital Signs Reviewed: Yes Diagnostics - Vital Signs Vital Signs Temp Pulse Resp BP Pulse Ox 04/01/19 21:19 80 11 162/103 96 04/01/19 21:18 86 14 98 04/01/19 19:49 97.3 F 98 18 164/90 99 - Laboratory Lab Results: Lab Results 04/01/19 04/01/19 Range/Units 20:16 20:16 WBC 7.6 (3.5-10.8) 10^3/uL RBC 4.49 (4.18-5.48) 10^6 /uL Hgb 14.6 (14.0-18.0) g/dL Hct 42 (42-52) % MCV 93 (80-94) fL MCH 32 H (27-31) pg MCHC 35 (31-36) g/dL RDW 13 (10-15) % Plt Count 234 (150-450) 10^3/uL MPV 7.7 (7.4-10.4) fL Neut % (Auto) 60.3 % Lymph % (Auto) 29.4 % [place] % (Auto) 7.3 % Eos % (Auto) 2.3 % Baso % (Auto) 0.7 % Absolute Neuts (auto) 4.6 (1.5-7.7) 10^3/ul Absolute Lymphs (auto) 2.2 (1.0-4.8) 10^3/ul Absolute Monos (auto) 0.6 (0-0.8) 10^3/ul Absolute Eos (auto) 0.2 (0-0.6) 10^3/ul Absolute Basos (auto) 0.1 (0-0.2) 10^3/ul Absolute Nucleated RBC 0.0 10^3/ul Nucleated RBC % 0.1 Sodium 139 (135-145) mmol/L Potassium 4.3 (3.5-5.0) mmol/L Chloride 106 (101-111) mmol/L Carbon Dioxide 28 (22-32) mmol/L Anion Gap 5 (2-11) mmol/L BUN 18 (6-24) mg/dL Creatinine 0.84 (0.67-1.17) mg/dL Est GFR ( Amer) 115.2 (>60) Est GFR (Non-Af Amer) 95.2 (>60) BUN/Creatinine Ratio 21.4 H (8-20) Glucose 107 H (70-100) mg/dL Calcium 9.4 (8.6-10.3) mg/dL Total Bilirubin 0.40 (0.2-1.0) mg/dL AST 16 (13-39) U/L ALT 17 (7-52) U/L Alkaline Phosphatase 80 (34-104) U/L Troponin I 0.00 (<0.04) ng/mL Total Protein 6.2 L (6.4-8.9) g/dL Albumin 4.0 (3.2-5.2) g/dL Globulin 2.2 (2-4) g/dL Albumin/Globulin Ratio 1.8 (1-3) Result Diagrams: 04/01/19 20:16 04/01/19 20:16 Lab Statement: Any lab studies that have been ordered have been reviewed, and results considered in the medical decision making process. - Radiology Chest Xray Radiology Interpretation Completed By: ED Physician Summary of Radiographic Findings: CXR reveals, per ED Physician, no acute process. Pending offical report. - EKG 1944 Cardiac Rate: Tachycardia - 108 bpm EKG Rhythm: Sinus Tachycardia EKG Comparison: No Significant Change - compared to 07/17/18 Summary of EKG Findings: Sinus tachycardia at 108 bpm with no significant changes compared to 07/17/18. Chest Pain Course/Dx - Course Course Of Treatment: 53-year-old male with a history of coronary artery disease with stents placed 2 in 2014, alcohol-induced cardiomyopathy, tobacco use, hypertension who presents with chest pain, recently admitted in June 2018 for similar presentation, workup including normal troponins, ejection fraction of 55-60% on echo. Chest Pain DDX: The patient is well appearing, with stable vitals. Given the patient's clinical presentation, highest on differential is ACS. The patient is high-risk w/ prior OK and did not receive his stress test after last admission, will check labs then discuss w hospitalist about admission for monitoring and stress. Patient has allergy to nitroglycerin and already took aspirin and plavix today. - Diagnoses Provider Diagnoses: Chest pain - Provider Notifications Discussed Care Of Patient With: Rianna Corbett - Hospitalist Time Discussed With Above Provider: 00:10 Instructed by Provider To: Other - Dr. Corbett accepts patient for admission. Discharge ED - Sign-Out/Discharge Documenting (check all that apply): Patient Departure - admitted All imaging exams completed and their final reports reviewed: Yes Patient Received Moderate/Deep Sedation with Procedure: No - Discharge Plan Condition: Stable Disposition: ADMITTED TO [facility] - Billing Disposition and Condition Condition: STABLE Disposition: Admitted to [facility] - Attestation Statements Document Initiated by Cecilioe: Yes Documenting Scribe: Sun England Provider For Whom Nichole is Documenting (Include Credential): Ismael Robin MD Scribe Attestation: Sun Arroyo, scribed for Ismael Robin MD on 04/02 at 0226. Scribe Documentation Reviewed: Yes Provider Attestation: The documentation as recorded by the scribe, Sun England accurately reflects the service I personally performed and the decisions made by , Ismael Robin MD Status of Scribe Document: Viewed
[2019-04-01] MEDS ORDERED: Al Hydrox/Mg Hydrox/Simet LIQ* 30 ML UDC PO PRN (23:22)
[2019-04-01] MEDS ORDERED: Magnesium Hydroxide LIQ* 30 ML UDC PO PRN (23:22)
[2019-04-01] MEDS ORDERED: Acetaminophen TAB* 325 MG PO PRN ×2 (23:22→23:29)
[2019-04-01] MEDS ORDERED: fentaNYL PATCHs 100 MCG/HR TRANSDERM SCH (23:45)
[2019-04-01 23:47] LABS: HDL Cholesterol 32.7 mg/dL
[2019-04-02] MEDS: Nicotine* 2MG (FRUIT FLAVOR) GUM PO PRN ×6 (00:49→19:12)
[2019-04-02] MEDS: Morphine 4 MG/ML VIAL (1 ml) 4 MG/ML VIAL IV PRN ×4 (00:49→23:12)
[2019-04-02] MEDS: Atenolol TAB* 50 MG PO SCH ×4 (00:50→20:02)
[2019-04-02] MEDS: HYDROcodone/ACETAMIN 5-325 MG* 1 TAB PO PRN ×3 (05:46→20:01)
[2019-04-02] MEDS: fentaNYL Patch Check Q Shift 1 NOTE FOLLOW UP SCH ×2 (06:43→19:12)
--- NOTE | 2019-04-02 09:00 | HP ---
CC: Dr. Edmundo Art * HISTORY AND PHYSICAL: DATE OF ADMISSION: 04/01/19 PRIMARY CARE PHYSICIAN: Dr. Edmundo Art HEALTHCARE PROXY: The patient denies having one. CODE STATUS: Full. CHIEF COMPLAINT: Acute onset of substernal chest pressure. HISTORY OF PRESENT ILLNESS: Mr. Bell is a 53-year-old man with coronary artery disease; status post PCI in 2014, depression, anxiety, hypertension, and active tobacco use who is presenting after experiencing sudden onset of substernal chest pressure while driving in his car today. He denies associated significant anxiety around this time. He states that it came on all of a sudden , was not worse with deep breaths or position change. When he got out of his car to walk into the emergency room, it was not worse with walking, but otherwise has not exerted himself. He thinks this is similar to pain that he experienced when he was having an VA in 2014. He briefly experienced diaphoresis when the pain started, but denies associated shortness of breath. He continues to smoke 1 pack of cigarettes per day. He has been adherent to his aspirin and Plavix. He denies heartburn, sour taste in his mouth, abdominal pain, nausea, vomiting, constipation, diarrhea, dysuria, fevers, or chills. Of note, the patient had a similar presentation in June 2018 with admission resulting with normal troponins and normal EF on echo. The patient never followed up with outpatient stress test after that admission. In the emergency room, EKG was not concerning for ischemic changes. His first troponin was normal He was asked to be admitted to medical service for an inpatient stress test given his elevated cardiac risk. PAST MEDICAL HISTORY: 1. VA, status post stents in 2014. 2. Depression. 3. Anxiety. 4. Hypertension. 5. Active tobacco use. 6. Chronic back and neck pain. HOME MEDICATIONS: 1. Aspirin 81 mg daily. 2. Clopidogrel 75 mg daily. 3. Atenolol 50 mg twice a day. 4. Atorvastatin 20 mg daily. 5. Citalopram 20 mg daily. 6. Alprazolam 2 mg 3 times a day as needed for anxiety. 7. Hydrocodone/acetaminophen 5/325 one tab every 6 hours as needed for pain. 8. Fentanyl patch 100 mcg topically every 62 hours. 9. Pantoprazole 40 mg daily. Controlled substances have been I-STOP verified. ALLERGIES: HALOPERIDOL and NITROGLYCERIN cause hives. CLONIDINE causes rash. LISINOPRIL causes cough. FAMILY HISTORY: The patient reports father with multiple heart attacks, although he is still alive today and in his 80s. The patient reports the mother had lupus and from complications at the age of 56. SOCIAL HISTORY: The patient lives alone. He smokes 1 pack of cigarettes per day and has a [id number] history. He denies alcohol or recreational drugs. He reports that he is on disability for his chronic back and neck pain. REVIEW OF SYSTEMS: A complete 10-point review of systems was performed, and pertinent positives and negatives are listed in the HPI. PHYSICAL EXAMINATION GENERAL: He is a well-appearing man, in no acute distress, who is alert and interactive. He appears comfortable. VITAL SIGNS: Afebrile, heart rate 70s, blood pressure 152/99, respiratory rate 16, oxygen saturation 100% on room air. HEENT: OP clear. Moist mucous membranes. NECK: No JVD. Supple. LUNGS: Clear to auscultation bilaterally. HEART: Regular rate and rhythm. No murmurs, gallops, or rubs. ABDOMEN: Soft, nontender, nondistended. EXTREMITIES: Warm and well perfused without evidence of edema. SKIN: Warm and dry. NEURO: A and O x3. No focal deficits. DIAGNOSTIC STUDIES/LAB DATA: CBC, BNP, and LFTs are unremarkable. Troponin 0. LDL 69 with triglycerides 290. Chest x-ray without acute cardiopulmonary pathology. EKG: Sinus tachycardia at 108, no ischemic changes, very similar to EKG from June 2018. ASSESSMENT AND PLAN: Mr. Bell is a 53-year-old man with a history of myocardial infarction; status post PCI, depression, anxiety, hypertension, active tobacco use, and chronic pain; on opioids who is presenting with acute onset of substernal nonexertional chest pain. 1. Chest pain. While this is similar in nature to the chest pain he was admitted for in the last year where a complete workup was negative, it is concerning given typical symptoms and the patient's significant cardiac history. Therefore, he will be admitted for an inpatient cardiac stress test. The patient is not confident that he can exert himself on a treadmill, so he is ordered for nuclear chemical stress. His LDL is at goal, so we will not order increase in his statin. Continue home aspirin and clopidogrel. A1c is pending. Tobacco cessation encouraged. Cannot give Nitro for pain as the patient reports allergy. Can order morphine 4 mg every 6 hours as needed for severe pain given the patient's likely high opioid tolerance. 2. Coronary artery disease. Continue the patient's home aspirin, Plavix, and atorvastatin. Continue home atenolol 50 mg twice a day. 3. Chronic pain. Continue the patient's home fentanyl patch 100 mcg every 3 days and home [place] every 6 hours as needed for moderate pain. 4. Anxiety. Continue home Xanax 2 mg up to 3 times a day as needed for anxiety ; this is I-STOP verified. 5. For depression, continue home citalopram 20 mg daily. 6. DVT prophylaxis. The patient is low risk and ambulatory. 7. Code status. Full. TIME SPENT: Approximately 60 minutes were spent on the admission of this patient, more than half of which was spent at bedside for interview and exam. [id number] #: [id number]
[2019-04-02] MEDS: Clopidogrel TAB* 75 MG PO SCH (09:25)
[2019-04-02] MEDS: Pantoprazole TAB * 40 MG TAB PO SCH (09:26)
[2019-04-02] MEDS: Atorvastatin* 20 MG TAB PO SCH (09:26)
[2019-04-02] MEDS: Aspirin 81 mg CHEW TAB* 81 MG TAB.CHEW PO SCH (09:27)
[2019-04-02] MEDS: Citalopram TAB* 20 MG PO SCH (09:27)
[2019-04-02] MEDS ORDERED: Al Hydrox/Mg Hydrox/Simet LIQ* 30 ML UDC PO ONE (14:30)
--- NOTE | 2019-04-02 16:05 | PN ---
Subjective Date of Service: 04/02/19 Interval History: Mr. Bell is not feeling well today. Overall he feels poor. Still having some chest pain which feels like pressure. No aggravating or relieving factors, but he does admit that morphine is mildly helpful. No SOB, diaphoresis, or dizziness. He refused a nuclear stress test today because he has had one in the past and did not like the way the medication made him feel. He could not be more specific about this feeling. He is willing to do an exercise stress test. No concerns from nursing. Received a call from [facility] nurse when patient went down for exercise stress test that they did not want to stress the patient today. BP was elevated and the patient was anxious. Apparently the patient has now agreed for a nuclear exercise stress. Family History: Unchanged from Admission Social History: Unchanged from Admission Past Medical History: Unchanged from Admission Objective Active Medications: Acetaminophen (Tylenol Tab*) 975 mg PO Q8H PRN PAIN - MILD Hydrocodone Bitart/Acetaminophen ([place] 5-325 Tab*) 1 tab PO Q6HR PRN PAIN - MODERATE Al Hydrox/Mg Hydrox/Simethicone (Maalox Plus*) 30 ml PO Q6H PRN INDIGESTION Alprazolam (Xanax Tab*) 2 mg PO TID PRN ANXIETY Aspirin (Aspirin 81 Mg Chew Tab*) 81 mg PO DAILY [facility] Atenolol (Tenormin Tab*) 50 mg PO BID [facility] Atorvastatin Calcium (Lipitor*) 20 mg PO DAILY [facility] Citalopram Hydrobromide (Celexa Tab*) 20 mg PO DAILY [facility] Clopidogrel Bisulfate (Plavix Tab*) 75 mg PO DAILY [facility] Fentanyl (Duragesic Patch 100 Mcg/Hr *) 100 mcg TRANSDERM Q72HR [facility] Magnesium Hydroxide (Milk Of Magnesia Liq*) 30 ml PO Q4H PRN CONSTIPATION Morphine Sulfate (Morphine 4 Mg/Ml Vial (1 Ml)) 4 mg IV Q6H PRN PAIN - SEVERE Nicotine Polacrilex (Nicotine Gum*) 2 mg PO Q2H PRN CRAVING Non-Formulary Medication (Irbesartan [Irbesartan]) 0.5 tab PO DAILY [facility] Pantoprazole Sodium (Protonix Tab*) 40 mg PO DAILY [facility] Vital Signs - 8 hr 04/02/19 04/02/19 04/02/19 09:10 10:24 11:57 Pulse Rate 62 Respiratory 15 16 14 Rate Blood Pressure 144/83 (mmHg) O2 Sat by Pulse 97 Oximetry Oxygen Devices in Use Now: None Appearance: Middle-aged male laying in bed in NAD Eyes: No Scleral Icterus Ears/Nose/Mouth/Throat: Mucous Membranes Moist Neck: NL Appearance and Movements; NL JVP, Trachea Midline Respiratory: Symmetrical Chest Expansion and Respiratory Effort, Clear to Auscultation Cardiovascular: NL Sounds; No Murmurs; No JVD, RRR Abdominal: NL Sounds; No Tenderness; No Distention Extremities: No Edema Neurological: Alert and Oriented x 3 Lines/Tubes/Other Access: Clean, Dry and Intact Peripheral IV Nutrition: Taking PO's Result Diagrams: 04/01/19 20:16 04/01/19 20:16 Assess/Plan/Problems-Billing Assessment: Mr. Bell is a 53 yo M with PMH of [place] with stents, HTN, depression/anxiety, and chronic pain; who presented to the ED with c/o CP and was admitted for further workup. - Patient Problems (1) Chest pain Code(s): R07.9 - CHEST PAIN, UNSPECIFIED Comment: - Sudden onset, associated with anxiety - EKG without acute changes and negative trops x3 - Documentation from 2015 notes chronic CP - Refused Lexiscan stress - Plan for exercise myoview stress tomorrow morning (2) Diabetes Code(s): E11.9 - TYPE 2 DIABETES MELLITUS WITHOUT COMPLICATIONS Comment: - Newly noted, A1c 6.9% - Will start on metformin at d/c (3) CAD (coronary artery disease) Code(s): I25.10 - ATHSCL HEART DISEASE OF [place] CORONARY ARTERY W/O ANG PCTRS Comment: - History of [place] with 3 bare metal stents placed in 2013 - According to prior records, last cath on 06/08/14 at [facility] showed no new stenoses - Continue atenolol, atorvastatin, aspirin, Plavix (4) Hypertension Code(s): I10 - ESSENTIAL (PRIMARY) HYPERTENSION Comment: - Slightly hypertensive, SBP 120-150s - Continue atenolol, irbesartan (5) Dyslipidemia Code(s): E78.5 - HYPERLIPIDEMIA, UNSPECIFIED Comment: - LDL at goal - Continue atorvastatin (6) Chronic pain Code(s): G89.29 - OTHER CHRONIC PAIN Comment: - With documented history of pain seeking behavior - Continue fentanyl patch (7) Anxiety and depression Code(s): F41.9 - ANXIETY DISORDER, UNSPECIFIED; F32.9 - MAJOR DEPRESSIVE DISORDER, SINGLE EPISODE, UNSPECIFIED Comment: - History of psychiatric admissions - Continue citalopram, alprazolam (8) DVT prophylaxis Comment: - Ambulation (9) Full code status Code(s): Z78.9 - OTHER SPECIFIED HEALTH STATUS Comment: Status and Disposition: Observation. Stress test in the AM. Attending: Allan Del Rio
[2019-04-02] MEDS: ALPRAZolam TAB* 0.5 MG PO PRN (16:08)
[2019-04-03] MEDS: HYDROcodone/ACETAMIN 5-325 MG* 1 TAB PO PRN ×4 (03:30→22:45)
[2019-04-03] MEDS: Nicotine* 2MG (FRUIT FLAVOR) GUM PO PRN ×3 (03:40→10:24)
[2019-04-03] MEDS: Morphine 4 MG/ML VIAL (1 ml) 4 MG/ML VIAL IV PRN (07:20)
[2019-04-03] MEDS: fentaNYL Patch Check Q Shift 1 NOTE FOLLOW UP SCH ×2 (07:26→20:48)
[2019-04-03] MEDS: Pantoprazole TAB * 40 MG TAB PO SCH (08:24)
[2019-04-03] MEDS: Aspirin 81 mg CHEW TAB* 81 MG TAB.CHEW PO SCH (08:24)
[2019-04-03] MEDS: ALPRAZolam TAB* 0.5 MG PO PRN ×2 (08:30→17:55)
[2019-04-03] MEDS: Losartan TAB* 25 MG PO SCH (08:30)
[2019-04-03] MEDS: Atorvastatin* 20 MG TAB PO SCH (12:25)
[2019-04-03] MEDS: Atenolol TAB* 50 MG PO SCH ×3 (12:25→20:47)
[2019-04-03] MEDS: Clopidogrel TAB* 75 MG PO SCH (12:25)
[2019-04-03] MEDS: Citalopram TAB* 20 MG PO SCH (12:25)
--- NOTE | 2019-04-03 14:28 | PN ---
Subjective Date of Service: 04/03/19 Interval History: Mr. Bell is feeling about the same today. Continues to have 6/10 chest pressure, midsternal. No aggravating or relieving factors. Denies SOB or diaphoresis. He is agreeable to staying the weekend as he admits that he does not follow up as he should. PCP is Dr. Ahsan Gaines in [place]. He does not have a pre fabricator. Nursing reports patient has left the floor unattended multiple times without notifying staff. Family History: Unchanged from Admission Social History: Unchanged from Admission Past Medical History: Unchanged from Admission Objective Active Medications: Acetaminophen (Tylenol Tab*) 975 mg PO Q8H PRN PAIN - MILD Hydrocodone Bitart/Acetaminophen ([place] 5-325 Tab*) 1 tab PO Q6HR PRN PAIN - MODERATE Al Hydrox/Mg Hydrox/Simethicone (Maalox Plus*) 30 ml PO Q6H PRN INDIGESTION Alprazolam (Xanax Tab*) 2 mg PO TID PRN ANXIETY Aspirin (Aspirin 81 Mg Chew Tab*) 81 mg PO DAILY [facility] Atenolol (Tenormin Tab*) 50 mg PO BID [facility] Atorvastatin Calcium (Lipitor*) 20 mg PO DAILY [facility] Citalopram Hydrobromide (Celexa Tab*) 20 mg PO DAILY [facility] Clopidogrel Bisulfate (Plavix Tab*) 75 mg PO DAILY [facility] Fentanyl (Duragesic Patch 100 Mcg/Hr *) 100 mcg TRANSDERM Q72HR [facility] Losartan Potassium (Cozaar Tab*) 25 mg PO DAILY [facility] Magnesium Hydroxide (Milk Of Magnesia Liq*) 30 ml PO Q4H PRN CONSTIPATION Nicotine Polacrilex (Nicotine Gum*) 4 mg PO Q2H PRN CRAVING Pantoprazole Sodium (Protonix Tab*) 40 mg PO DAILY [facility] Vital Signs - 8 hr 04/03/19 04/03/19 04/03/19 07:20 08:00 08:30 Temperature Pulse Rate Respiratory 18 16 20 Rate Blood Pressure (mmHg) O2 Sat by Pulse Oximetry 04/03/19 04/03/19 04/03/19 08:32 08:54 10:53 Temperature 97.2 F Pulse Rate 66 Respiratory 16 20 20 Rate Blood Pressure 139/73 (mmHg) O2 Sat by Pulse 98 Oximetry 04/03/19 04/03/19 12:06 12:28 Temperature 97.2 F Pulse Rate 69 Respiratory 20 20 Rate Blood Pressure 139/91 (mmHg) O2 Sat by Pulse 99 Oximetry Oxygen Devices in Use Now: None Appearance: Middle-aged male sitting in bed in NAD Eyes: No Scleral Icterus Ears/Nose/Mouth/Throat: Mucous Membranes Moist Neck: NL Appearance and Movements; NL JVP, Trachea Midline Respiratory: Symmetrical Chest Expansion and Respiratory Effort, Clear to Auscultation Cardiovascular: NL Sounds; No Murmurs; No JVD, RRR Abdominal: NL Sounds; No Tenderness; No Distention Extremities: No Edema Neurological: Alert and Oriented x 3 Lines/Tubes/Other Access: Clean, Dry and Intact Peripheral IV Nutrition: Taking PO's Result Diagrams: 04/01/19 20:16 04/01/19 20:16 Assess/Plan/Problems-Billing Assessment: Mr. Bell is a 53 yo M with PMH of [place] with stents, HTN, depression/anxiety, and chronic pain; who presented to the ED with c/o CP and was admitted for further workup. - Patient Problems (1) Chest pain Code(s): R07.9 - CHEST PAIN, UNSPECIFIED Comment: - Sudden onset, associated with anxiety - EKG without acute changes and negative trops x3 - Documentation from 2015 notes chronic CP - Refused Lexiscan stress - Exercise myoview stress today intermediate risk with a small to moderate area of stress-induced ischemia in the anterior wall - Appreciate Cardiology consult; plan for cath Saturday (2) Diabetes Code(s): E11.9 - TYPE 2 DIABETES MELLITUS WITHOUT COMPLICATIONS Comment: - A1c 6.9% - Patient does admit that he has been diagnosed with DM in the past and was previously on oral medications - Does not want to start metformin d/t side effects, but is agreeable to diet changes - Nutrition consult placed (3) CAD (coronary artery disease) Code(s): I25.10 - ATHSCL HEART DISEASE OF [place] CORONARY ARTERY W/O ANG PCTRS Comment: - History of [place] with 3 bare metal stents placed in 2013 - According to prior records, last cath on 06/08/14 at [facility] showed no new stenoses - Continue atenolol, atorvastatin, aspirin, Plavix (4) Hypertension Code(s): I10 - ESSENTIAL (PRIMARY) HYPERTENSION Comment: - Slightly hypertensive, SBP 130-150s - Continue atenolol, irbesartan (5) Dyslipidemia Code(s): E78.5 - HYPERLIPIDEMIA, UNSPECIFIED Comment: - LDL at goal - Continue atorvastatin (6) Chronic pain Code(s): G89.29 - OTHER CHRONIC PAIN Comment: - With documented history of pain seeking behavior - Continue fentanyl patch (7) Anxiety and depression Code(s): F41.9 - ANXIETY DISORDER, UNSPECIFIED; F32.9 - MAJOR DEPRESSIVE DISORDER, SINGLE EPISODE, UNSPECIFIED Comment: - History of psychiatric admissions - Continue citalopram, alprazolam (8) DVT prophylaxis Comment: - Ambulation (9) Full code status Code(s): Z78.9 - OTHER SPECIFIED HEALTH STATUS Comment: Status and Disposition: Inpatient. Plan for cardiac cath on Saturday. Attending: Rashmi Cisse
[2019-04-03] MEDS: Nicotine* 4MG (FRUIT FLAVOR) GUM PO PRN ×3 (14:50→20:37)
[2019-04-03] MEDS ORDERED: Heparin VIAL(*) 5000 UNITS/ML VIAL (FIVE THOUSAND) IV PRN (14:51)
[2019-04-03] MEDS: Heparin DRIP 25,000 UNITS(*) 25,000 UNITS/500 ML BAG IV SCH (15:14)
--- NOTE | 2019-04-03 15:19 | CONS ---
CC: Hospitalist Service; Eleanor Santos MD CARDIOLOGY CONSULTATION: DATE OF CONSULT: 04/03/19 HISTORY OF PRESENT ILLNESS: I was asked by hospitalist service to see this 53-year- old male patient with known history of coronary artery disease. Back in April 2015, he was hospitalized at [facility] in [place] for chest pain. He was found to have severe disease of diagonal of the LAD a nd OM of the left circ and underwent angioplasty and stenting for both of them. His EF at that time was 65% to 70%. He has not followed through with Cardiology. He had been, according to him, dawson portillo on Plavix, aspirin, beta-angela treatment, statin treatment. Unfortunately, he continues to smok e. He was admitted yesterday with symptoms of chest pain and heaviness in his chest. He gives no na usea, no vomiting, no hematochezia, no skin rash, no abdominal pain, no syncope, no tachycardia, no p alpitations, no orthopnea, no PND, no fever, and no chills is appreciated. I was called for cardiolo gy consult because of his nuclear stress test that was done today showed him to have intermediate ris k with moderate reversible ischemia of the anterior wall. He continues to have chest pain since hosp italization. He does have a known history of systemic arterial hypertension, depression, anxiety, ch ronic back and neck pain syndrome, and according to him, myocardial infarction in the past. He also was found to have his hemoglobin A1c to be elevated, although he is not on diabetes medications. His review of all other systems essentially is negative. PAST MEDICAL HISTORY: Includes myocardial infarction, coronary artery disease, angioplasty and stent ing 2014, history of depression, anxiety, hypertension, current tobacco consumption, and chronic back and neck pain syndrome. MEDICATIONS: His medications as an outpatient include: 1. Aspirin 81 mg daily. 2. Plavix 75 mg daily. 3. Atenolol 50 mg twice a day. 4. Lipitor 20 mg daily. 5. He is on anxiety medication. 6. He is on fentanyl patch 100 mcg topically every 62 hours. 7. He is on pantoprazole 40 mg daily. ALLERGIES: Allergic to NITROGLYCERIN causing hives, CLONIDINE giving him rash, LISINOPRIL causing co ugh, and HALOPERIDOL giving him hives. FAMILY HISTORY: Dad had a history of coronary artery disease. SOCIAL HISTORY: Unfortunately, he continues to smoke 1 pack per day. No history of drinking. No hi story of illicit drug use. He lives alone. REVIEW OF SYSTEMS: Review of all other systems essentially is negative. PHYSICAL EXAM: On exam, he is awake, alert, and oriented. He has some chest pain, which is unchange d from the chest pain he came in with. His vitals include blood pressure of 139/91, pulse is 69 and sinus rhythm, temperature 97.2, respiratory rate 20. Head and Neck Exam: Normocephalic, atraumatic head. Ears, nose, and throat essentially benign. Neck supple. JVP is not elevated. No carotid bru its. No masses in the neck is appreciated. Chest: Clear to auscultation. No rales. No wheeze. No added sounds appreciated. Heart: Normal. S1, S2. No added sounds. No gallops and no rubs. Abdom en: Benign. Positive bowel sounds. Extremities: No edema, no cyanosis, no clubbing. Skin exam is normal. Psych: Normal affect and mood. SCHOOL CUSTODIAN: No focal deficits appreciated. DIAGNOSTIC STUDIES/LAB DATA: White blood cell 7.6, hemoglobin 14.6, hematocrit 42, platelets 234. S odium 139, potassium 4.3, chloride 106, BUN 18, creatinine 0.84. Hemoglobin A1c 6.9. Troponin 0 x3. His EKG showed him to be normal sinus rhythm with poor R-wave progression, nonspecific T-wave abnorm ality. His nuclear stress test as described. IMPRESSION: The patient is a 53-year-old male patient with: 1. Known history of coronary artery disease, history of myocardial infarction, status post angioplas ty and stenting of the diagonal of the left anterior descending and obtuse marginal of the circumflex in 2014 at [facility] in [place]. 2. Obesity. 3. Current tobacco consumption. 4. Systemic arterial hypertension. 5. Diabetes mellitus type 2. 6. Hyperlipidemia. 7. Abnormal nuclear stress test as described. 8. Abnormal baseline EKG. PLAN: Lengthy talk and discussion with the patient and hospitalist service. I also discussed him wi th Dr. Odom from Interventional Cardiology. We will continue at the present time all his current c ardiac medications and other medications including his aspirin 81 mg daily, atenolol 50 mg twice a da y, Lipitor 20 mg once a day, Plavix 75 mg daily, Cozaar 25 mg daily, and definitely strongly encourag e him to quit smoking, continue his chronic pain medications, and diabetes management as per hospital ist service. Definite evaluation by a cardiac cath to evaluate his coronary anatomy and the status o f his [place] coronary artery disease including his LAD, OM, especially his LAD in light of his ischem ic changes of the anterior wall. I have discussed with him benefits and risks of the cardiac cathete rization, he is willing to proceed. I answered all his concerns and questions up to his satisfaction . Any further recommendations would be pending his clinical outcome. TIME SPENT: More than half of at least 55 to 60 plus minutes was in the face-to- face education and counseling mode. [id number]/[facility] #: [id number]
[2019-04-03 15:34] LABS: ABS Eosinophils 0.2 10^3/ul (0-0.6); ABS Lymphocytes 2.1 10^3/ul (1.0-4.8); ABS Monocytes 0.3 10^3/ul (0-0.8); ABS Neutrophils 3.3 10^3/ul (1.5-7.7); Eosinophil % 2.6 %; Hematocrit 42 % (42-52); Hemoglobin 14.2 g/dL (14.0-18.0); Lymphocyte % 35.4 %; Mean Corpuscular HGB Conc 34 g/dL (31-36); Mean Corpuscular Hemoglobin 31 pg (27-31); Mean Corpuscular Volume 93 fL (80-94); Platelet Count 207 10^3/uL (150-450); Red Blood Count 4.52 10^6 /uL (4.18-5.48); Red Cell Distribution Width 13 % (10-15); White Blood Count 5.9 10^3/uL (3.5-10.8)
[2019-04-03 15:52] LABS: EGFR African American 129.3 (>60); EGFR Non-African American 106.9 (>60)
--- NOTE | 2019-04-03 19:56 | PN ---
Hospitalist Progress Note Date of Service: 04/03/19 Discussed patient with nurse. He continues to endorse CP intermittently, reported morphine was helpful. Plan for cardiac cath this weekend. Morphine IV ordered x 3 doses for overnight; plan should be reviewed with attending. Also recommended to discuss smoking cessation with patient, as he is leaving to smoke and this could be contributing to CP complaints. Nicotine patch also ordered.
[2019-04-03] MEDS: Morphine INJ* 2 MG/ML 1 ML SYRINGE (TWO MG - NEW SYRINGE VERSION) IV PRN (20:38)
[2019-04-03] MEDS: Nicotine PATCH 21 MG/24 HR* PATCH TRANSDERM SCH (20:48)
[2019-04-04] MEDS: Morphine INJ* 2 MG/ML 1 ML SYRINGE (TWO MG - NEW SYRINGE VERSION) IV PRN ×2 (02:32→11:00)
[2019-04-04] MEDS: Nicotine* 4MG (FRUIT FLAVOR) GUM PO PRN ×7 (02:32→22:10)
[2019-04-04 04:51] LABS: ABS Basophils 0.1 10^3/ul (0-0.2); ABS Eosinophils 0.2 10^3/ul (0-0.6); ABS Lymphocytes 2.5 10^3/ul (1.0-4.8); ABS Monocytes 0.3 10^3/ul (0-0.8); ABS Neutrophils 2.7 10^3/ul (1.5-7.7); Eosinophil % 3.2 %; Hematocrit 41 % (42-52); Hemoglobin 13.9 g/dL (14.0-18.0); Lymphocyte % 43.3 %; Mean Corpuscular HGB Conc 34 g/dL (31-36); Mean Corpuscular Hemoglobin 31 pg (27-31); Mean Corpuscular Volume 93 fL (80-94); Mean Platelet Volume 7.8 fL (7.4-10.4); Nucleated Red Blood Cells % 0.1; Platelet Count 184 10^3/uL (150-450); Red Blood Count 4.44 10^6 /uL (4.18-5.48); Red Cell Distribution Width 13 % (10-15); White Blood Count 5.8 10^3/uL (3.5-10.8)
[2019-04-04] MEDS: HYDROcodone/ACETAMIN 5-325 MG* 1 TAB PO PRN ×4 (06:19→22:22)
[2019-04-04] MEDS: fentaNYL Patch Check Q Shift 1 NOTE FOLLOW UP SCH ×2 (06:55→19:08)
[2019-04-04] MEDS: Atenolol TAB* 50 MG PO SCH ×2 (08:37→23:29)
[2019-04-04] MEDS: Aspirin 81 mg CHEW TAB* 81 MG TAB.CHEW PO SCH (08:37)
[2019-04-04] MEDS: Citalopram TAB* 20 MG PO SCH (08:37)
[2019-04-04] MEDS: Atorvastatin* 20 MG TAB PO SCH (08:37)
[2019-04-04] MEDS: Pantoprazole TAB * 40 MG TAB PO SCH (08:38)
[2019-04-04] MEDS: ALPRAZolam TAB* 0.5 MG PO PRN (08:38)
[2019-04-04] MEDS: Clopidogrel TAB* 75 MG PO SCH (08:38)
[2019-04-04] MEDS: Losartan TAB* 25 MG PO SCH (08:43)
[2019-04-04] MEDS: Nicotine PATCH 21 MG/24 HR* PATCH TRANSDERM SCH (08:43)
--- NOTE | 2019-04-04 12:43 | PN ---
Subjective Date of Service: 04/04/19 Interval History: Mr. Bell is feeling fine this morning. He continues to have previously described chest pain, without change. He has some abdominal discomfort this morning and believes it is r/t some milk he drank last night. Denies SOB, diaphoresis, N/V. No concerns from nursing. Family History: Unchanged from Admission Social History: Unchanged from Admission Past Medical History: Unchanged from Admission Objective Active Medications: Acetaminophen (Tylenol Tab*) 975 mg PO Q8H PRN PAIN - MILD Hydrocodone Bitart/Acetaminophen ([place] 5-325 Tab*) 1 tab PO Q6HR PRN PAIN - MODERATE Al Hydrox/Mg Hydrox/Simethicone (Maalox Plus*) 30 ml PO Q6H PRN INDIGESTION Alprazolam (Xanax Tab*) 2 mg PO TID PRN ANXIETY Aspirin (Aspirin 81 Mg Chew Tab*) 81 mg PO DAILY [facility] Atenolol (Tenormin Tab*) 50 mg PO BID [facility] Atorvastatin Calcium (Lipitor*) 20 mg PO DAILY [facility] Citalopram Hydrobromide (Celexa Tab*) 20 mg PO DAILY [facility] Clopidogrel Bisulfate (Plavix Tab*) 75 mg PO DAILY [facility] Fentanyl (Duragesic Patch 100 Mcg/Hr *) 100 mcg TRANSDERM Q72H [facility] Heparin Sodium (Porcine) (Heparin Vial(*)) 0 - 4,000 units IV .SEE COMMENTS PRN Heparin Sodium/Dextrose (Heparin Drip 25,000 Units(*)) 25,000 units in 500 mls @ 0 mls/hr IV PER RATE [facility]; Protocol Losartan Potassium (Cozaar Tab*) 25 mg PO DAILY [facility] Magnesium Hydroxide (Milk Of Magnesia Liq*) 30 ml PO Q4H PRN CONSTIPATION Nicotine (Nicotine Patch 21 Mg/24 Hr*) 1 patch TRANSDERM DAILY [facility] Nicotine Polacrilex (Nicotine Gum*) 4 mg PO Q2H PRN CRAVING Pantoprazole Sodium (Protonix Tab*) 40 mg PO DAILY [facility] Vital Signs - 8 hr 04/04/19 04/04/19 04/04/19 06:19 07:29 08:00 Temperature 97.6 F Pulse Rate 60 Respiratory 16 16 18 Rate Blood Pressure 142/90 (mmHg) O2 Sat by Pulse 98 Oximetry 04/04/19 04/04/19 04/04/19 08:38 08:46 10:55 Temperature Pulse Rate Respiratory 20 18 20 Rate Blood Pressure (mmHg) O2 Sat by Pulse Oximetry Oxygen Devices in Use Now: None Appearance: Middle-aged male laying in bed in NAD Ears/Nose/Mouth/Throat: Mucous Membranes Moist Neck: NL Appearance and Movements; NL JVP, Trachea Midline Respiratory: Symmetrical Chest Expansion and Respiratory Effort, Clear to Auscultation Cardiovascular: NL Sounds; No Murmurs; No JVD, RRR Abdominal: NL Sounds; No Tenderness; No Distention Extremities: No Edema Neurological: Alert and Oriented x 3 Lines/Tubes/Other Access: Clean, Dry and Intact Peripheral IV Nutrition: Taking PO's Result Diagrams: 04/04/19 04:44 04/03/19 15:26 Assess/Plan/Problems-Billing Assessment: Mr. Bell is a 53 yo M with PMH of [place] with stents, HTN, depression/anxiety, and chronic pain; who presented to the ED with c/o CP and was admitted for further workup. - Patient Problems (1) Chest pain Code(s): R07.9 - CHEST PAIN, UNSPECIFIED Comment: - Sudden onset prior to admission, associated with anxiety - EKG without acute changes and negative trops x3 - Documentation from 2015 notes chronic CP - Exercise myoview stress today intermediate risk with a small to moderate area of stress-induced ischemia in the anterior wall - Appreciate Cardiology consult; plan for cath Saturday - Continue Heparin gtt (2) Diabetes Code(s): E11.9 - TYPE 2 DIABETES MELLITUS WITHOUT COMPLICATIONS Comment: - A1c 6.9% - Patient does admit that he has been diagnosed with DM in the past and was previously on oral medications - Does not want to start metformin d/t side effects, but is agreeable to diet changes - Nutrition consult placed (3) CAD (coronary artery disease) Code(s): I25.10 - ATHSCL HEART DISEASE OF [place] CORONARY ARTERY W/O ANG PCTRS Comment: - History of [place] with 3 bare metal stents placed in 2013 - According to prior records, last cath on 06/08/14 at [facility] showed no new stenoses - Continue atenolol, atorvastatin, aspirin, Plavix (4) Hypertension Code(s): I10 - ESSENTIAL (PRIMARY) HYPERTENSION Comment: - Normotensive, SBP 130-140s - Continue atenolol, irbesartan (5) Dyslipidemia Code(s): E78.5 - HYPERLIPIDEMIA, UNSPECIFIED Comment: - LDL at goal - Continue atorvastatin (6) Chronic pain Code(s): G89.29 - OTHER CHRONIC PAIN Comment: - With documented history of pain seeking behavior - Continue fentanyl patch (7) Anxiety and depression Code(s): F41.9 - ANXIETY DISORDER, UNSPECIFIED; F32.9 - MAJOR DEPRESSIVE DISORDER, SINGLE EPISODE, UNSPECIFIED Comment: - History of psychiatric admissions - Continue citalopram, alprazolam (8) DVT prophylaxis Comment: - Heparin gtt (9) Full code status Code(s): Z78.9 - OTHER SPECIFIED HEALTH STATUS Comment: Status and Disposition: Inpatient. Plan for cardiac cath on Saturday. Attending: Rashmi Cisse
--- NOTE | 2019-04-04 14:57 | PN ---
Subjective Date of Service: 04/04/19 - CC: CP Interval History: Per pt ongoing CP with nausea. No change with activity, position, it is SS. Medications Active Medications: Acetaminophen (Tylenol Tab*) 975 mg PO Q8H PRN PRN Reason: PAIN - MILD Hydrocodone Bitart/Acetaminophen ([place] 5-325 Tab*) 1 tab PO Q6HR PRN PRN Reason: PAIN - MODERATE Last Admin: 04/04/19 06:19 Dose: 1 tab Al Hydrox/Mg Hydrox/Simethicone (Maalox Plus*) 30 ml PO Q6H PRN PRN Reason: INDIGESTION Alprazolam (Xanax Tab*) 2 mg PO TID PRN PRN Reason: ANXIETY Last Admin: 04/04/19 08:38 Dose: 2 mg Aspirin (Aspirin 81 Mg Chew Tab*) 81 mg PO DAILY [facility] Last Admin: 04/04/19 08:37 Dose: 81 mg Atenolol (Tenormin Tab*) 50 mg PO BID [facility] Last Admin: 04/04/19 08:37 Dose: 50 mg Atorvastatin Calcium (Lipitor*) 20 mg PO DAILY [facility] Last Admin: 04/04/19 08:37 Dose: 20 mg Citalopram Hydrobromide (Celexa Tab*) 20 mg PO DAILY [facility] Last Admin: 04/04/19 08:37 Dose: 20 mg Clopidogrel Bisulfate (Plavix Tab*) 75 mg PO DAILY [facility] Last Admin: 04/04/19 08:38 Dose: 75 mg Fentanyl (Duragesic Patch 100 Mcg/Hr *) 100 mcg TRANSDERM Q72H [facility] Heparin Sodium (Porcine) (Heparin Vial(*)) 0 - 4,000 units IV .SEE COMMENTS PRN PRN Reason: SLIDING SCALE Last Admin: 04/04/19 11:57 Dose: 2,000 units Heparin Sodium/Dextrose (Heparin Drip 25,000 Units(*)) 25,000 units in 500 mls @ 0 mls/hr IV PER RATE [facility]; Protocol Last Admin: 04/03/19 15:14 Dose: 20 mls/hr Losartan Potassium (Cozaar Tab*) 25 mg PO DAILY [facility] Last Admin: 04/04/19 08:43 Dose: Not Given Magnesium Hydroxide (Milk Of Magnesia Liq*) 30 ml PO Q4H PRN PRN Reason: CONSTIPATION Nicotine (Nicotine Patch 21 Mg/24 Hr*) 1 patch TRANSDERM DAILY [facility] Last Admin: 04/04/19 08:43 Dose: 1 patch Nicotine Polacrilex (Nicotine Gum*) 4 mg PO Q2H PRN PRN Reason: CRAVING Last Admin: 04/04/19 11:09 Dose: 4 mg Pantoprazole Sodium (Protonix Tab*) 40 mg PO DAILY [facility] Last Admin: 04/04/19 08:38 Dose: 40 mg Pharmacy Profile Note (Fentanyl Patch Check Q Shift) 1 note FOLLOW UP 0700, 1900 [facility] Last Admin: 04/04/19 06:55 Dose: 1 note Pharmacy Profile Note (Nicotine Patch Removal Note*) 1 note PATCH OFF 2100 [facility] Objective Vital Signs: Temp Pulse Resp BP Pulse Ox 97.5 F 45 16 106/62 96 04/04/19 13:50 04/04/19 13:50 04/04/19 13:50 04/04/19 13:50 04/04/19 13:50 Oxygen Devices in Use Now: None Appearance: Tall and marked centripetal obesity, lying in bed. NAD. Eyes: No Scleral Icterus, PERRLA Ears/Nose/Mouth/Throat: Clear Oropharnyx Neck: NL Appearance and Movements; NL JVP Respiratory: Symmetrical Chest Expansion and Respiratory Effort, Clear to Auscultation - distant Cardiovascular: NL Sounds; No Murmurs; No JVD, RRR Abdominal: NL Sounds; No Tenderness; No Distention - rotund. Extremities: No Edema Skin: No Rash or Ulcers Neurological: Alert and Oriented x 3, NL Muscle Strength and Tone Lines/Tubes/Other Access: Clean, Dry and Intact Peripheral IV Laboratory Results: 04/04/19 04:44 04/03/19 15:26 APTT 47.9 seconds (26.0-38.0) H 04/04/19 11:14 Total Bilirubin 0.40 mg/dL (0.2-1.0) 04/01/19 20:16 AST 16 U/L (13-39) 04/01/19 20:16 ALT 17 U/L (7-52) 04/01/19 20:16 Alkaline Phosphatase 80 U/L (34-104) 04/01/19 20:16 Total Protein 6.2 g/dL (6.4-8.9) L 04/01/19 20:16 Albumin 4.0 g/dL (3.2-5.2) 04/01/19 20:16 Globulin 2.2 g/dL (2-4) 04/01/19 20:16 Albumin/Globulin Ratio 1.8 (1-3) 04/01/19 20:16 Triglycerides 290 mg/dL 04/01/19 20:16 Cholesterol 160 mg/dL 04/01/19 20:16 LDL Cholesterol 69 mg/dL 04/01/19 20:16 HDL Cholesterol 32.7 mg/dL 04/01/19 20:16 04/01/19 04/01/19 04/02/19 20:16 22:40 08:05 Troponin I 0.00 0.00 0.00 Diagnostic Imaging: Patient Name: DARIEL SINGH Medical Record#: [id number] Ordering Physician: Jeane Mckinley NP Acct.#: [id number] : 1965 Age: 53 Sex: M Location: [address] [place] [address]/TELEMETRY Exam Date: 04/03/19 ADM Status: ADM Sumanth Order Information: NM MYOCARDIAL MULTI RESTING Accession Number: [id number] CPT: 87242 INDICATION: Chest pain, prior catheterization, multiple risk factors for coronary artery disease. COMPARISON: No relevant prior exams available on the [facility] PACS for comparison. TECHNIQUE: 10.350 mCi of Tc-99m Myoview were administered IV. SPECT images of the heart were obtained. Later on the same day. Under the direction of Dr. Odom, an exercise stress test was performed. The patient achieved a peak heart rate of 144 bpm, 87 % of the age- predicted maximum. Subsequently, the patient was given an IV injection of 26.540 mCi Tc- 99m Myoview. SPECT images of the heart were obtained and a gated wall motion study was performed. CT for attenuation correction performed due to claustrophobia. FINDINGS: Gated wall motion images were obtained at stress and demonstrate hypokinesia most prominent at the anterior wall and anterior lateral wall junction. The calculated left ventricular ejection fraction is 48 % at stress. Estimated LEFT ventricular end diastolic volume is 108 mL. TID 1.11. There is a small moderate region of decreased perfusion from the mid to the basilar anterior wall segments at stress with significant partial reversal at rest concerning for ischemia. No fixed myocardial perfusion defects evident. IMPRESSION: #. Suggestion of small to moderate region of stress-induced ischemia involving the mid to basilar segments of the anterior wall. #. Hypokinesia most prominent at the anterior wall and anterior lateral wall junction. #. Low normal estimated LEFT ventricular ejection fraction at 48%. ASSESSMENT: Intermediate risk based on nuclear portion. CATH REPORT [facility] REVIEWED : EF 65-70%, LVEDP 14 mmHg. LAD 20% prox, 90% Dx, Cx 80% OM2 to PTCA, RCA 20% plaque prox. EKG Data: Tele: NSR EcG ordered, pending. Assessment/Plan 53 yo male with CP, abnormal stress, negative trops, CAD risks of active smoking , HTN, DM, mixed dylipidemia, centripetal obesity, hx CAD, CM followed in the distant past by Ranjit Hunter Syr. Ongoing CP since admission. As high risk I will update trop/ECG Getting morphine-this could contribute to nausea. CAD: Cath 2014 showed branch disease and mild plaque prox LAD and RCA. For cath Saturday for reversable ischemia anterior wall. On Atenalol, ASA, Plavix, statin, heparin gtt. Ensure diet optimal @ [facility] for DM, high triglycerides. Smokiing cessation discussed. CM: 48% on nuclear study. On above and on Cozaar. Consider conversion of Atenolol to Coreg. Chronic Pain: Via internal medicine, chronic back pain complicates cardiac care.
[2019-04-04] MEDS ORDERED: fentaNYL PATCHs 100 MCG/HR TRANSDERM SCH (21:00)
[2019-04-04] MEDS: Heparin DRIP 25,000 UNITS(*) 25,000 UNITS/500 ML BAG IV SCH (22:09)
[2019-04-04] MEDS: Nicotine Patch Removal NOTE PATCH OFF SCH (23:30)
[2019-04-05] MEDS: Nicotine* 4MG (FRUIT FLAVOR) GUM PO PRN ×6 (04:33→19:35)
[2019-04-05] MEDS: HYDROcodone/ACETAMIN 5-325 MG* 1 TAB PO PRN ×2 (04:33→18:03)
[2019-04-05 06:21] LABS: ABS Eosinophils 0.2 10^3/ul (0-0.6); ABS Lymphocytes 2.6 10^3/ul (1.0-4.8); ABS Monocytes 0.4 10^3/ul (0-0.8); Eosinophil % 2.7 %; Hematocrit 44 % (42-52); Hemoglobin 14.9 g/dL (14.0-18.0); Lymphocyte % 42.3 %; Mean Corpuscular HGB Conc 34 g/dL (31-36); Mean Corpuscular Hemoglobin 31 pg (27-31); Mean Corpuscular Volume 93 fL (80-94); Mean Platelet Volume 8.5 fL (7.4-10.4); Nucleated Red Blood Cells % 0.4; Platelet Count 217 10^3/uL (150-450); Red Blood Count 4.75 10^6 /uL (4.18-5.48); Red Cell Distribution Width 13 % (10-15); White Blood Count 6.2 10^3/uL (3.5-10.8)
[2019-04-05 06:25] LABS: EGFR African American 103.7 (>60); EGFR Non-African American 85.7 (>60)
[2019-04-05] MEDS: fentaNYL Patch Check Q Shift 1 NOTE FOLLOW UP SCH ×2 (06:45→18:35)
[2019-04-05] MEDS: Aspirin 81 mg CHEW TAB* 81 MG TAB.CHEW PO SCH (08:30)
[2019-04-05] MEDS: Clopidogrel TAB* 75 MG PO SCH (08:30)
[2019-04-05] MEDS: Citalopram TAB* 20 MG PO SCH (08:30)
[2019-04-05] MEDS: Pantoprazole TAB * 40 MG TAB PO SCH (08:30)
[2019-04-05] MEDS: Losartan TAB* 25 MG PO SCH (08:31)
[2019-04-05] MEDS: Atorvastatin* 20 MG TAB PO SCH (08:31)
[2019-04-05] MEDS: Atenolol TAB* 50 MG PO SCH ×2 (08:33→19:34)
[2019-04-05] MEDS: Nicotine PATCH 21 MG/24 HR* PATCH TRANSDERM SCH (08:33)
--- NOTE | 2019-04-05 10:24 | PN ---
Subjective Date of Service: 04/05/19 Interval History: Ms. Bell reports that he continues to have some midsternal chest discomfort. He denies other complaint including shortness of breath, cough, nausea, or abdominal pain. Family History: Unchanged from Admission Social History: Unchanged from Admission Past Medical History: Unchanged from Admission Objective Active Medications: Acetaminophen (Tylenol Tab*) 975 mg PO Q8H PRN Hydrocodone Bitart/Acetaminophen ([place] 5-325 Tab*) 1 tab PO Q6HR PRN Al Hydrox/Mg Hydrox/Simethicone (Maalox Plus*) 30 ml PO Q6H PRN Alprazolam (Xanax Tab*) 2 mg PO TID PRN Aspirin (Aspirin 81 Mg Chew Tab*) 81 mg PO DAILY [facility] Atenolol (Tenormin Tab*) 50 mg PO BID [facility] Atorvastatin Calcium (Lipitor*) 20 mg PO DAILY [facility] Citalopram Hydrobromide (Celexa Tab*) 20 mg PO DAILY [facility] Clopidogrel Bisulfate (Plavix Tab*) 75 mg PO DAILY [facility] Fentanyl (Duragesic Patch 100 Mcg/Hr *) 100 mcg TRANSDERM Q72H [facility] Heparin Sodium (Porcine) (Heparin Vial(*)) 0 - 4,000 units IV .SEE COMMENTS PRN Heparin Sodium/Dextrose (Heparin Drip 25,000 Units(*)) 25,000 units in 500 mls @ 0 mls/hr IV PER RATE [facility]; Protocol Losartan Potassium (Cozaar Tab*) 25 mg PO DAILY [facility] Magnesium Hydroxide (Milk Of Magnesia Liq*) 30 ml PO Q4H PRN Nicotine (Nicotine Patch 21 Mg/24 Hr*) 1 patch TRANSDERM DAILY [facility] Nicotine Polacrilex (Nicotine Gum*) 4 mg PO Q2H PRN Pantoprazole Sodium (Protonix Tab*) 40 mg PO DAILY [facility] Pharmacy Profile Note (Fentanyl Patch Check Q Shift) 1 note FOLLOW UP 0700, 1900 [facility] Pharmacy Profile Note (Nicotine Patch Removal Note*) 1 note PATCH OFF 2100 [facility] Vital Signs: Temp Pulse Resp BP Pulse Ox 97 F 59 20 121/69 95 04/05/19 07:45 04/05/19 07:45 04/05/19 08:00 04/05/19 07:45 04/05/19 07:45 Oxygen Devices in Use Now: None Appearance: Male lying in bed in NAD Eyes: No Scleral Icterus Ears/Nose/Mouth/Throat: Mucous Membranes Moist Neck: Trachea Midline Respiratory: Symmetrical Chest Expansion and Respiratory Effort, Clear to Auscultation Cardiovascular: NL Sounds; No Murmurs; No JVD, No Edema Abdominal: NL Sounds; No Tenderness; No Distention Extremities: No Edema Skin: No Rash or Ulcers Neurological: Alert and Oriented x 3, NL Muscle Strength and Tone Nutrition: Taking PO's Result Diagrams: 04/05/19 05:19 04/05/19 05:19 Additional Lab and Data: . Assess/Plan/Problems-Billing Assessment: Mr. Bell is a 53 yo M with PMH of GA with stents, HTN, depression/anxiety, and chronic pain; who presented to the ED with c/o CP, finding of indeterminate stress test with plan for cardiac catheterization. - Patient Problems (1) Chest pain Comment: - Sudden onset prior to admission, associated with anxiety - EKG without acute changes and negative trops x3 - Documentation from 2014 notes chronic CP - Exercise myoview stress today intermediate risk with a small to moderate area of stress-induced ischemia in the anterior wall - Appreciate Cardiology consult; plan for cath Saturday - Continue Heparin gtt (2) CAD (coronary artery disease) Comment: - History of GA with 3 bare metal stents placed in 2013 - According to prior records, last cath on 06/08/14 at [facility] showed no new stenoses - Continue atenolol, atorvastatin, aspirin, Plavix (3) Diabetes Comment: - A1c 6.9% - Patient confirms he has been diagnosed with DM in the past and was previously on oral medications - Does not want to start metformin d/t side effects, but is agreeable to diet changes - Nutrition consult placed (4) Hypertension Current Visit: Yes Status: Acute Code(s): I10 - ESSENTIAL (PRIMARY) HYPERTENSION SNOMED Code(s): 03010848 Comment: - Normotensive, SBP 130-140s - Continue atenolol, irbesartan (5) Dyslipidemia Comment: - Continue atorvastatin (6) Chronic pain Comment: - Continue fentanyl patch (7) Anxiety and depression Comment: - Continue citalopram, alprazolam (8) DVT prophylaxis Comment: - Heparin gtt (9) Full code status Comment: Status and Disposition: Inpatient. Plan for cardiac cath on Saturday.
[2019-04-05] MEDS: Morphine INJ* 2 MG/ML 1 ML SYRINGE (TWO MG - NEW SYRINGE VERSION) IV PRN ×4 (11:50→22:03)
--- NOTE | 2019-04-05 14:44 | PN ---
Subjective Date of Service: 04/05/19 - CC: CP Interval History: Per pt ongoing CP, resolution of nausea. Medications Active Medications: Acetaminophen (Tylenol Tab*) 975 mg PO Q8H PRN PRN Reason: PAIN - MILD Hydrocodone Bitart/Acetaminophen ([place] 5-325 Tab*) 1 tab PO Q6HR PRN PRN Reason: PAIN - MODERATE Last Admin: 04/05/19 04:33 Dose: 1 tab Al Hydrox/Mg Hydrox/Simethicone (Maalox Plus*) 30 ml PO Q6H PRN PRN Reason: INDIGESTION Alprazolam (Xanax Tab*) 2 mg PO TID PRN PRN Reason: ANXIETY Last Admin: 04/04/19 08:38 Dose: 2 mg Aspirin (Aspirin 81 Mg Chew Tab*) 81 mg PO DAILY [facility] Last Admin: 04/05/19 08:30 Dose: 81 mg Atenolol (Tenormin Tab*) 50 mg PO BID [facility] Last Admin: 04/05/19 08:33 Dose: Not Given Atorvastatin Calcium (Lipitor*) 20 mg PO DAILY [facility] Last Admin: 04/05/19 08:31 Dose: 20 mg Citalopram Hydrobromide (Celexa Tab*) 20 mg PO DAILY [facility] Last Admin: 04/05/19 08:30 Dose: 20 mg Clopidogrel Bisulfate (Plavix Tab*) 75 mg PO DAILY [facility] Last Admin: 04/05/19 08:30 Dose: 75 mg Fentanyl (Duragesic Patch 100 Mcg/Hr *) 100 mcg TRANSDERM Q72H [facility] Last Admin: 04/04/19 22:10 Dose: 100 mcg Heparin Sodium (Porcine) (Heparin Vial(*)) 0 - 4,000 units IV .SEE COMMENTS PRN PRN Reason: SLIDING SCALE Last Admin: 04/04/19 11:57 Dose: 2,000 units Heparin Sodium/Dextrose (Heparin Drip 25,000 Units(*)) 25,000 units in 500 mls @ 0 mls/hr IV PER RATE [facility]; Protocol Last Admin: 04/04/19 22:09 Dose: 16 mls/hr Losartan Potassium (Cozaar Tab*) 25 mg PO DAILY [facility] Last Admin: 04/05/19 08:31 Dose: 25 mg Magnesium Hydroxide (Milk Of Magnesia Liq*) 30 ml PO Q4H PRN PRN Reason: CONSTIPATION Morphine Sulfate (Morphine Inj (Syringe))*) 2 mg IV Q2H PRN PRN Reason: PAIN - SEVERE Last Admin: 04/05/19 11:50 Dose: 2 mg Nicotine (Nicotine Patch 21 Mg/24 Hr*) 1 patch TRANSDERM DAILY [facility] Last Admin: 04/05/19 08:33 Dose: Not Given Nicotine Polacrilex (Nicotine Gum*) 4 mg PO Q2H PRN PRN Reason: CRAVING Last Admin: 04/05/19 11:50 Dose: 4 mg Pantoprazole Sodium (Protonix Tab*) 40 mg PO DAILY [facility] Last Admin: 04/05/19 08:30 Dose: 40 mg Pharmacy Profile Note (Fentanyl Patch Check Q Shift) 1 note FOLLOW UP 0700, 1900 [facility] Last Admin: 04/05/19 06:45 Dose: 1 note Pharmacy Profile Note (Nicotine Patch Removal Note*) 1 note PATCH OFF 2100 [facility] Last Admin: 04/04/19 23:30 Dose: 1 note Objective Vital Signs: Temp Pulse Resp BP Pulse Ox 97.4 F 78 16 120/89 98 04/05/19 12:00 04/05/19 12:00 04/05/19 13:15 04/05/19 12:00 04/05/19 12:00 Oxygen Devices in Use Now: None Appearance: Tall and marked centripetal obesity, lying in bed. NAD. Eyes: No Scleral Icterus, PERRLA Ears/Nose/Mouth/Throat: Clear Oropharnyx Neck: NL Appearance and Movements; NL JVP Respiratory: Symmetrical Chest Expansion and Respiratory Effort, Clear to Auscultation - distant Cardiovascular: NL Sounds; No Murmurs; No JVD, RRR Abdominal: NL Sounds; No Tenderness; No Distention - rotund. Extremities: No Edema Skin: No Rash or Ulcers Neurological: Alert and Oriented x 3, NL Muscle Strength and Tone Lines/Tubes/Other Access: Clean, Dry and Intact Peripheral IV Laboratory Results: 04/05/19 05:19 04/05/19 05:19 APTT 56.1 seconds (26.0-38.0) H 04/05/19 08:37 Total Bilirubin 0.40 mg/dL (0.2-1.0) 04/01/19 20:16 AST 16 U/L (13-39) 04/01/19 20:16 ALT 17 U/L (7-52) 04/01/19 20:16 Alkaline Phosphatase 80 U/L (34-104) 04/01/19 20:16 Total Protein 6.2 g/dL (6.4-8.9) L 04/01/19 20:16 Albumin 4.0 g/dL (3.2-5.2) 04/01/19 20:16 Globulin 2.2 g/dL (2-4) 04/01/19 20:16 Albumin/Globulin Ratio 1.8 (1-3) 04/01/19 20:16 Triglycerides 290 mg/dL 04/01/19 20:16 Cholesterol 160 mg/dL 04/01/19 20:16 LDL Cholesterol 69 mg/dL 04/01/19 20:16 HDL Cholesterol 32.7 mg/dL 04/01/19 20:16 04/01/19 04/01/19 04/02/19 20:16 22:40 08:05 Troponin I 0.00 0.00 0.00 04/04/19 15:35 Troponin I 0.00 Diagnostic Imaging: Patient Name: DARIEL SINGH Medical Record#: [id number] Ordering Physician: Jeane Mckinley NP Acct.#: [id number] : 1965 Age: 53 Sex: M Location: [address] [place] [address] MEDICAL/TELEMETRY Exam Date: 04/03/19 ADM Status: ADM Sumanth Order Information: NM MYOCARDIAL MULTI RESTING Accession Number: [id number] CPT: 11753 INDICATION: Chest pain, prior catheterization, multiple risk factors for coronary artery disease. COMPARISON: No relevant prior exams available on the [facility] PACS for comparison. TECHNIQUE: 10.350 mCi of Tc-99m Myoview were administered IV. SPECT images of the heart were obtained. Later on the same day. Under the direction of Dr. Odom, an exercise stress test was performed. The patient achieved a peak heart rate of 144 bpm, 87 % of the age- predicted maximum. Subsequently, the patient was given an IV injection of 26.540 mCi Tc- 99m Myoview. SPECT images of the heart were obtained and a gated wall motion study was performed. CT for attenuation correction performed due to claustrophobia. FINDINGS: Gated wall motion images were obtained at stress and demonstrate hypokinesia most prominent at the anterior wall and anterior lateral wall junction. The calculated left ventricular ejection fraction is 48 % at stress. Estimated LEFT ventricular end diastolic volume is 108 mL. TID 1.11. There is a small moderate region of decreased perfusion from the mid to the basilar anterior wall segments at stress with significant partial reversal at rest concerning for ischemia. No fixed myocardial perfusion defects evident. IMPRESSION: #. Suggestion of small to moderate region of stress-induced ischemia involving the mid to basilar segments of the anterior wall. #. Hypokinesia most prominent at the anterior wall and anterior lateral wall junction. #. Low normal estimated LEFT ventricular ejection fraction at 48%. ASSESSMENT: Intermediate risk based on nuclear portion. CATH REPORT [facility] REVIEWED : EF 65-70%, LVEDP 14 mmHg. LAD 20% prox, 90% Dx, Cx 80% OM2 to PTCA, RCA 20% plaque prox. EKG Data: Tele: NSR EcG ordered, pending. Assessment/Plan 53 yo male with CP, abnormal stress, negative trops, CAD risks of active smoking , HTN, DM, mixed dylipidemia, centripetal obesity, hx CAD, past BMS's, CM followed in the distant past by Ranjit Hunter Syr. Ongoing CP since admission but negative trops, the pain is likely non cardiac. CAD: Cath 2014 showed branch disease and mild plaque prox LAD and RCA. For cath Saturday for reversable ischemia anterior wall. Lifestyle/smoking cessation important. I reassured pt CP appeared non cardiac, if it is cardiac it is not causing damage. For mixed dyslipidemia with low HDL, elevated TG's consider adding Vascepa as outpatient in addition to diet recommendation. CM: 48% on nuclear study. On above and on Cozaar. Consider conversion of Atenolol to Coreg. Chronic Pain: Via internal medicine, chronic back pain complicates cardiac care.
[2019-04-05 16:36] LABS: Calcium 9.7 mg/dL (8.6-10.3)
[2019-04-05 16:41] LABS: BUN/Creatinine Ratio 21.9 (8-20); EGFR African American 98.8 (>60); EGFR Non-African American 81.6 (>60)
[2019-04-05 17:19] LABS: Potassium 4.7 mmol/L (3.5-5.0)
[2019-04-05] MEDS: Nicotine Patch Removal NOTE PATCH OFF SCH (19:30)
[2019-04-05] MEDS: ALPRAZolam TAB* 0.5 MG PO PRN (19:34)
[2019-04-06] MEDS: Morphine INJ* 2 MG/ML 1 ML SYRINGE (TWO MG - NEW SYRINGE VERSION) IV PRN ×2 (00:16→04:05)
[2019-04-06] MEDS: Nicotine* 4MG (FRUIT FLAVOR) GUM PO PRN ×3 (00:19→13:50)
[2019-04-06] MEDS ORDERED: NS 0.9% 1000 ML** 1,000 ML IV SCH (05:00)
[2019-04-06 05:17] LABS: ABS Eosinophils 0.2 10^3/ul (0-0.6); ABS Lymphocytes 2.2 10^3/ul (1.0-4.8); ABS Monocytes 0.6 10^3/ul (0-0.8); ABS Neutrophils 4.8 10^3/ul (1.5-7.7); Hematocrit 45 % (42-52); Hemoglobin 14.8 g/dL (14.0-18.0); Lymphocyte % 28.6 %; Mean Corpuscular HGB Conc 33 g/dL (31-36); Mean Corpuscular Hemoglobin 31 pg (27-31); Mean Corpuscular Volume 93 fL (80-94); Mean Platelet Volume 8.2 fL (7.4-10.4); Platelet Count 226 10^3/uL (150-450); Red Blood Count 4.77 10^6 /uL (4.18-5.48); Red Cell Distribution Width 13 % (10-15); White Blood Count 7.8 10^3/uL (3.5-10.8)
[2019-04-06] MEDS: fentaNYL Patch Check Q Shift 1 NOTE FOLLOW UP SCH (06:48)
[2019-04-06] MEDS ORDERED: Diazepam TAB(*) 5 MG PO PRN (08:00)
[2019-04-06] MEDS: Clopidogrel TAB* 75 MG PO SCH (08:24)
[2019-04-06] MEDS: Aspirin 81 mg CHEW TAB* 81 MG TAB.CHEW PO SCH (08:24)
[2019-04-06] MEDS ORDERED: Midazolam* 1 MG/ML 5 ML VIAL (5 MG) ONE (08:26)
[2019-04-06] MEDS ORDERED: fentaNYL* 50 MCG/ML 2 ML VIAL (100 MCG VIAL) ONE (08:26)
[2019-04-06] MEDS ORDERED: diPHENhydraMINE IV* 50 MG/ML 1 ml VIAL (BENADRYL) ONE (08:55)
[2019-04-06] MEDS ORDERED: VERAPAMIL 2.5 MG/ML 2 ML VIAL ** 5 mg/2 ml ONE (10:01)
[2019-04-06] MEDS ORDERED: HEPARIN IV ONE (10:01)
[2019-04-06] MEDS ORDERED: Heparin(*) 1000 UNIT/ML 10 ML VIAL CATH LAB IV ONE (10:01)
[2019-04-06] MEDS ORDERED: Iohexol 350 (CONTRAST) 100 ML PAK IV ONE (10:01)
[2019-04-06] MEDS ORDERED: Lidocaine 1% INJ* 10 MG/ML 30 ML SDV ONE (10:01)
[2019-04-06] MEDS: Citalopram TAB* 20 MG PO SCH (11:58)
[2019-04-06] MEDS: Pantoprazole TAB * 40 MG TAB PO SCH (11:58)
[2019-04-06] MEDS: Atorvastatin* 20 MG TAB PO SCH (11:58)
[2019-04-06] MEDS: Losartan TAB* 25 MG PO SCH (11:59)
[2019-04-06] MEDS: Atenolol TAB* 50 MG PO SCH (12:00)
[2019-04-06] MEDS: Nicotine PATCH 21 MG/24 HR* PATCH TRANSDERM SCH (12:00)
[2019-04-06] MEDS: HYDROcodone/ACETAMIN 5-325 MG* 1 TAB PO PRN (13:50)
[2019-04-06 15:30] VITALS: BP 105/65
--- NOTE | 2019-04-06 15:42 | CONS ---
PSYCHIATRIC CONSULTATION REPORT: DATE OF CONSULT: 04/06/19 ATTENDING CLINICIAN: LAURY Mercado CONSULTING PHYSICIAN: Dr. Devon Marion. REASON FOR CONSULT: Suicidal ideations. SUBJECTIVE HISTORY: Psychiatry is asked to evaluate this 53-year-old single white male with a histor y of narcotic dependence, antisocial personality traits, and coronary artery disease due to the expre ssion of suicidal ideations. I understand that Mr. Bell was admitted on 04/02/19 for chest pain an d has undergone full cardiac workup. At this time, he is medically cleared for discharge. As the it aids social worker was meeting with him, he expressed depressed mood and suicidal ideations. Prior to meeting with the patient, I spoke with staff on the [address] [place] [address] unit, who indicates that Mr. Bell has b een observed to be medication seeking throughout his hospital stay, often asking for narcotic pain me dicines on a p.r.n. basis at exactly the time that they become do. On examination, Hemant informs me initially that he was feeling depressed and wanted to drive to [place] to seek hospitalization at [facility]. Along the way, he claims that he developed chest pain and came to [facility] for acute treatment of this. I had a copy of Mr. [place] the [facility] dated 04/08/15. At that chata e, the summary indicates that his benzodiazepines were discontinued and he was placed on Tegretol to prevent Xanax withdrawal seizures. I see from his State Controlled Substances website page that he c ontinues to receive alprazolam prescriptions monthly from a psychiatrist in [place] named, Dr. Aureliano Art. I attempted to reach Dr. Art; however, there was no answer on the available number. At any rate, as soon as this clinician made it clear that we would likely taper him off benzodiazepines , he immediately changed his story, suddenly denying suicidal ideations and claiming that he has been feeling better now for several days and that he no longer wants to stay in the hospital or continue to [facility]. He now states that his plan is to return to the [facility] where he resides a nd follow up with his outpatient psychiatrist on 04/17/19 when he claims to have appointment. The pa tient's affect is full. In fact, I did observe him purchasing snacks in the snack machine just prior to our encounter. His appetite is described by staff as good and he continues to steadfastly deny s uicidal ideations as our interview continues. In fact, he also denies neurovegetative symptoms of de pression. PAST PSYCHIATRIC HISTORY: The patient has had both outpatient and inpatient care. I understand that he injured himself in the past by cutting himself with glass approximately 8 years ago. He has also had suicide attempts associated with arrests including in 2011 when he drank antifreeze on his way to intermediate. He continues to work with long-term psychiatrist, Dr. Aureliano Art, in [place], [place]. I understand that he has been diagnosed in the past with schizoaffective disorder; however, this was n ot observed during either his 2 previous [facility] admissions either in October or March of 2015. PAST MEDICAL HISTORY: Significant for cardiomyopathy; coronary artery disease, status post stents; l eft eye cataract surgery; appendectomy; fractured mandible; and hypertension. MEDICATIONS: Outpatient medications include: 1. Avapro. 2. Fentanyl patch. 3. Protonix. 4. Vicodin. 5. Plavix. 6. Celexa. 7. Lipitor. 8. Aspirin. 9. Xanax 2 mg 3 times daily. 10. Coreg. ALLERGIES: He is allergic to CLONIDINE, HALDOL, LISINOPRIL, NITROGLYCERIN, and PENICILLINS. FAMILY PSYCHIATRIC HISTORY: The patient states his daughter has intellectual disabilities along with impulsivity and self-cutting. No other history of family psychiatric conditions. SUBSTANCE ABUSE HISTORY: The patient is a half pack a day smoker. He has abused alcohol in the past . There is a concern for abuse patterns with opioids and benzodiazepines. SOCIAL HISTORY: The patient was born in [place]. He has a sister who is 2 years older than him. Xavier alex reports having a good childhood living with his mother and father. Mom was a nurse. His father ow bandar a business. 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 He has been marri ed twice. One of his wives and the other he was from. He has history of being jailed twice in 2011, once for murphy larceny and once for loitering. He has no access to firearms at this t [place]. MENTAL STATUS EXAMINATION: The patient is a tall, heavy set white male in a patient gown with an IV hooked up, who is sitting up in bed. He is wearing dark shaded glasses. He is calm, cooperative, ex pressive, easy to establish a rapport with. Speech has a normal rate, tone. And volume. Mood appear s to be euthymic with full affect. Thought process is linear, goal directed. Thought content is sig nificant for apparent drug seeking behavior. He is denying suicidal or homicidal ideations at this t cassidy. He denies auditory or visual hallucinations. Insight and judgment are fair given his willingnes s to follow up with Dr. Art in the outpatient setting. Cognitively, he is awake and alert with w hat would appear to be an average intellect. DIAGNOSES: [place] I: Benzodiazepine use disorder, opioid use disorder. [place] II: Antisocial traits by history. IMPRESSION: The patient is a 53-year-old white male with a history of benzodiazepine and opi oid misuse as well as antisocial personality traits and coronary artery disease, who has been hospita lized on the medical service since the 04/02/19, who made suicidal statements in the setting of being discharged from medical care. When I met with him, he quickly retracted his suicidal ideation as so on as it was clear that he would not receive further benzodiazepine treatment. He is now stating that he has a followup in place with his outpatient psychiatrist and would prefer to receive his treatmen t in a less restrictive setting. Mr. Bell strongly denies suicidal ideations at this time and it w ould not appear that he would benefit from inpatient psychiatric treatment. RECOMMENDATIONS TO PRIMARY TEAM: The patient does not warrant one-to-one observations nor does he wa rrant inpatient psychiatric care. He is psychiatrically cleared for discharge to the community. His followup will be on 04/17/[address] Aureliano Art in [place], [place]. Psychiatry is signing off . Thank you for the consult request. [id number]/[facility] #: [id number]
--- NOTE | 2019-04-06 16:51 | CATH ---
"*[facility]* [address] [address] Main: [phone] [email or web address] Cardiac Catheterization Patient: Hemant Bell : 1965 Study Date: 04/06/2019 Age: 53 Gender: M HR: Height: 72 in /182.9 cm BSA: 2.34 m^2 Weight: 232.1 lb /105.5 kg BMI: 31.5 kg/m^2 Project Manager/Team Coach: Saw Brown MD Ordering Physician: Eleanor Santos Referring Physician: Eleanor Santos Maghaydah Qutaybeh, --- Procedures performed: - Left coronary angiography. - Right coronary angiography. Summary: Stable CAD D1 stent patent Recommendations: Continue Medical Therapy. History: PMH: Myocardial infarction. Risk factors: Current tobacco use. Hypertension. Family history is significant for coronary artery disease. Medications: The patient received no antianginal therapy in the last two weeks. Labs, prior tests, procedures, and surgery: Stress myocardial perfusion imaging. Abnormal. Moderate risk of ischemia. Catheterization with coronary intervention (04/21/2015). Blood tests: Partial thromboplastin time (PTT) of 37.3 sec. Serum potassium (K) of 4.7 mEq/l. Serum sodium (Na) of 135 mEq/l. Serum creatinine (current admission) of 0.96 mg/dl. Blood urea nitrogen of 21 mg/dl. Glucose of 119 mg/dl. Platelet count of 226 th/ul. White blood cell count (WBC) of 0.01 th/ul. Red blood cell count (RBC) of 4770 th/ul. Hematocrit of 45 %. Hemoglobin (pre-procedure) of 14.8 g/dl. Study data: Study status: Cardiac cath: elective. Location: Catheterization laboratory. Consent: The risks, benefits, and alternatives to the procedure were explained to the patient and/or their healthcare hospital sales representative and written informed consent was obtained. All available pre-procedure labs were reviewed. Height: 182.9 cm. 72 in. Weight: 105.5 kg. 232.1 lb. Body surface area: 2.34 m^2. Body mass index: 31.5 kg/m^2. Procedure: 1. Initial setup. The patient was brought to the laboratory. Surface ECG leads, blood pressure measurements, and pulse oximetric signals were monitored. A baseline seven lead ECG was recorded. A time out was observed per protocol. 2. Skin preparation. The planned puncture sites were prepped and draped in the usual sterile manner. 3. Local anesthesia. 1% lidocaine was administered. 4. Sedation. was administered. 5. Local anesthesia. 1% lidocaine (1 ml) was administered. 6. Right radial artery access. A 6F [place] Slender sheath was advanced into the vessel. 7. Selective left coronary angiography. A 5F TIG 4.0 catheter was advanced into the left coronary vessel ostium under fluoroscopic guidance. Contrast was injected. Images were obtained in multiple projections. 8. Selective right coronary angiography. A 5F TIG 4.0 catheter was advanced into the right coronary vessel ostium under fluoroscopic guidance. Contrast was injected. Images were obtained in multiple projections. 9. Right radial artery hemostasis. Vessel closure was achieved with a Regular Vasc Band device. Study completion: Minimal estimated blood loss. All catheters inserted during the procedure were removed. There were no apparent complications. Administered medications: BENADRYL (Diphenhydramine), 25mg, IV. VERSED (Midazolam), 2mg, IV. Fentanyl, 25mcg, IV. (Radial) Verapamil, 3mg, intra-arterially. (Radial) Heparin, 3,000units, intra-arterially. Contrast: Omnipaque 350 50 ml (total dose). Omnipaque 350 150 ml (wasted). Radiation: Fluoroscopy time: 4.2 min. Fluoroscopy dose: 95.6 cGy. Discharge: The patient tolerated the procedure well and was discharged from the lab in stable condition. Findings Coronary arteries: The coronary circulation is right dominant. Left main: Normal, 0% stenosis. LAD: Normal, 0% stenosis. 1st diagonal: Prior intervention: stent in the mid D1. The stented segment is patent. Left circumflex: Normal, 0% stenosis. Right coronary: Normal, 0% stenosis. Hemodynamics: + + + |Stage description |Condition 1 -| + + + |Arterial pressure s/d (m)|113/68 (88) | + + + Prepared and electronically signed by Saw Brown MD 04/06/2019 16:51"
--- NOTE | 2019-04-06 22:35 | DS ---
CC: Edmundo Art; Dr. Sheldon Cui * DISCHARGE SUMMARY: DATE OF ADMISSION: 04/01/19 DATE OF DISCHARGE: 04/06/19 PRIMARY CARE PROVIDER: Edmundo Art. OTHER PROVIDER: Dr. Sheldon Cui, Cardiology, [place]. ATTENDING PHYSICIAN: Meghann Day MD * (dictated by LAURY Mercado) PRIMARY DIAGNOSES: 1. Atypical chest pain. 2. Diabetes mellitus, type 2. 3. Hypertriglyceridemia. SECONDARY DIAGNOSES: 1. Coronary artery disease, myocardial infarction, status post stents in 2014. 2. Hypertension. 3. Chronic back, neck pain. 4. Depression. 5. Anxiety. 6. Active tobacco abuse. CONSULTATIONS WHILE IN THE HOSPITAL: Cardiology strongly encouraged him to quit smoking. Evaluation by cardiac cath to evaluate his coronary anatomy and status of [place] coronary artery disease including LAD, OM, especially LAD in light of ischemic changes of anterior wall. Discussed benefits and risks of cardiac cath, he is willing to proceed. STUDIES WHILE IN THE HOSPITAL: 1. Stress test, EKG portion: Low risk Bobby. 2. Stress test, nuc med portion: Assessment: Intermediate risk based on nuclear portion. 3. Cardiac catheterization, verbal report from Dr. Brown reveals normal cath. DISCHARGE MEDICATIONS: Home medications: 1. Aspirin 81 mg p.o. daily. 2. Atorvastatin 20 mg p.o. daily. 3. Citalopram 20 mg p.o. daily. 4. Clopidogrel bisulfate 75 mg p.o. daily. 5. Fentanyl patch 100 mcg topical q.72 hours. 6. Hydrocodone/acetaminophen 5/325 one tab p.o. q.6 hours p.r.n. pain. 7. Pantoprazole 40 mg p.o. daily. 8. Irbesartan 75 mg p.o. daily. New home medications: 1. Carvedilol 12.5 mg p.o. b.i.d. 2. Nicotine gum 4 mg p.o. q.2 hours p.r.n. craving. 3. Nicotine patch 21 mg transdermal q.24 hours. Discontinued home medications: 1. Alprazolam - old records indicate that the patient is no longer on this medication. 2. Atenolol. HISTORY OF PRESENT ILLNESS/HOSPITAL COURSE: Mr. Bell is a 53-year-old male with a past medical history of CAD status post PCI in 2015, hypertension, tobacco abuse, who presented to the ER on 04/01/19 with complaints of sudden onset of substernal chest pressure. For full and complete details, please see the history and physical dictated by Dr. Rianna Corbett, but in short, the patient presented with chest pain warranting a cardiac workup. He was admitted. Lexiscan stress test was ordered, but the patient refused this, so exercise Myoview stress testing was performed. EKG portion revealed low risk, while nuc med portion revealed intermediate risk. Cardiology was consulted for further recommendations. They recommended cardiac catheterization on Saturday, . The patient continued to have constant chest pain throughout his stay. It did not radiate and there was no change with breathing or movement. He did note that his chest pain was associated with anxiety. Also documentation from 2014 notes that the patient has chronic chest pain. Cardiac catheterization was performed. At the time of discharge, official results are not provided, but Dr. Brown who performed the cath states that the results are normal and that the patient may be discharged. Official results reveal stable CAD, patent D1 stent. Recommendations were to discontinue atenolol and tobacco abuse, start Coreg. Due to the patient's elevated triglyceride level, it was also recommended that he start Vascepa. As the patient was being prepared for discharge, he expressed suicidal ideations to social work staff. Psychiatry was consulted; Dr. Marion saw the patient. He was willing to accept the patient for admission. He noted that he would discontinue the patient's alprazolam to which the patient replied that he would like to be discharged home. He is denying suicidal ideations, homicidal ideations. He does note that he has continued chest pressure that does not increase or decrease with activity. It does not radiate and does not change with breathing, movement, or palpation. He will follow up with Dr. Cui in [place] as his ACS workup was ultimately negative. The patient denies shortness of breath, headache, vision changes, cough, fever, abdominal pain, nausea, vomiting, diarrhea, constipation, pain in the extremities. He denies myalgias, arthralgias, although it is noted that he does have chronic pain for which he is on fentanyl and [place]. Mr. Bell is stable for discharge. REVIEW OF SYSTEMS: A 14-point review of systems has been performed and all the pertinent positives and negatives are in the HPI. All other systems are negative. PHYSICAL EXAMINATION: Vital signs are temperature 97.1 oral, heart rate 56, respiratory rate 14, oxygen saturation 100% on room air, blood pressure 112/81. General: Mr. Bell is a well-developed, well-nourished, obese middle-aged white male who is sitting at the edge of his bed. He is in no acute distress. He has a somewhat flat affect. HEENT: PERRL. EOMI. Nonicteric sclerae. Hearing grossly intact. Oral: Mucous membranes are moist. There are no lesions. Pharynx is clear. The tongue is at midline. Cardiovascular: Regular rate and rhythm with S1, S2 present without murmurs, rubs, clicks, or gallops. There is no JVD. There is no peripheral edema. Radial and pedal pulses are palpable. Pulmonary: Symmetrical chest expansion without use of accessory muscles. Lungs: Clear to auscultation bilaterally. No rhonchi, wheezes, or rubs. There is no digital clubbing or cyanosis. Abdomen: Obese. Bowel sounds in all quadrants. The abdomen is soft. There is no tenderness to palpation. Musculoskeletal: Full range of motion without pain or deformity. Neuro: The patient is awake. He is alert and oriented x3. Cranial nerves grossly intact. He moves all of his extremities. Motor strength is 5/5 in upper and lower extremities bilaterally, equal. Steady gait without impairment. DISCHARGE PLAN: Mr. Bell will be discharged to home. CONDITION: Good. DIET: 1. Heart healthy. 2. ADA. MEDICATIONS: 1. Discontinue atenolol. 2. Start Coreg 12.5 mg p.o. b.i.d. 3. Continue to abstain from tobacco products. Prescription for nicotine patch and gum were sent to your pharmacy. EDUCATION: 1. Follow up with primary care provider in 4 to 7 days. 2. Follow up with psychiatrist in 4 to 7 days. 3. Follow up with Cardiology in 1 to 2 weeks. 4. The patient will follow up with Dr. Cui, Cardiology, [place], [place]. 5. Please return to the ER or nearest hospital if you experience any worsening of symptoms, shortness of breath, chest pressure or pain, dizziness, lightheadedness, loss of consciousness, high fevers, chills, night sweats, or any other worrisome signs or symptoms. This is a summarized report of a complex medical history and hospital stay. For further details, please see the entire medical record. TIME SPENT: Approximately 45 minutes were spent on this discharge, greater than half of that time was spent [id number] with the patient discussing discharge plans and instructions. LAURY ESQUIVEL [id number]/[facility] #: [id number] [facility]
== END 2019-04-06 16:00 | disposition home or self-care (01) | DRG 192 ==
LOC: ED 19:46 → MEDTELE 23:22 → OBSVTOIN 04-03 15:00
PROVIDERS: ADMIT Internal Medicine; ATTEND Internal Medicine
PROC: 4A02XM4 Measurement of Cardiac Total Activity, External Approach (ICD-10-PCS; 2019-04-03)
PROC: B2111ZZ Fluoroscopy of Multiple Coronary Arteries using Low Osmolar Contrast (ICD-10-PCS; principal; 2019-04-06 08:30)
DX: R07.89 Other chest pain (principal); R45.851 Suicidal ideations; I42.9 Cardiomyopathy, unspecified; E11.9 Type 2 diabetes mellitus without complications; E78.1 Pure hyperglyceridemia; I25.10 Atherosclerotic heart disease of native coronary artery without angina pectoris; I10 Essential (primary) hypertension; G89.29 Other chronic pain; M54.9 Dorsalgia, unspecified; M54.2 Cervicalgia; F41.9 Anxiety disorder, unspecified; F17.210 Nicotine dependence, cigarettes, uncomplicated; K21.9 Gastro-esophageal reflux disease without esophagitis; F31.9 Bipolar disorder, unspecified; R11.0 Nausea; E66.8 Other obesity; R94.39 Abnormal result of other cardiovascular function study; E78.2 Mixed hyperlipidemia; F19.90 Other psychoactive substance use, unspecified, uncomplicated; F11.90 Opioid use, unspecified, uncomplicated; R94.31 Abnormal electrocardiogram [ECG] [EKG]; Z88.8 Allergy status to other drugs, medicaments and biological substances; Z82.49 Family history of ischemic heart disease and other diseases of the circulatory system; Z83.2 Family history of diseases of the blood and blood-forming organs and certain disorders involving the immune mechanism; Z98.42 Cataract extraction status, left eye; I25.2 Old myocardial infarction; Z95.5 Presence of coronary angioplasty implant and graft; Z79.01 Long term (current) use of anticoagulants; Z79.02 Long term (current) use of antithrombotics/antiplatelets; Z68.31 Body mass index [BMI] 31.0-31.9, adult; Z81.8 Family history of other mental and behavioral disorders
CPT/HCPCS: 36415; 71046; 78452; 80048; 80053; 80061; 82565; 83036; 84484; 84520; 85025; 85730; 86850; 86900; 86901; 93005; 93017; 93454; 99156; 99157; 99284; A9270-GY; A9502; G0378; J1200; J1644; J2250; J2270; J3010